=== PATIENT | female | born 1930 | race Caucasian/White ===

== ENCOUNTER 2018-01-26 01:53 | Inpatient (IN) ==
--- NOTE | 2018-01-26 04:49 | P.CONNS ---
History of Present Illness Service: Neurosurgery Consult date: 01/26/18 Requesting Physician: Lilian Moreno Reason for Consult: Traumatic brain injury Primary Care Provider: UNKNOWN History of Present Illness: 87-year-old female who reportedly tripping over a cat and was taken to [facility] emergency room. Is unclear whether there is loss of consciousness. CT scan of the head was obtained and reveals small right frontal subdural hemorrhage along with traumatic subarachnoid hemorrhage involving the sylvian fissures right more than left with generalized atrophy without any midline shift or mass-effect noted. She also found to have facial fractures quested thereafter. Patient's main complaint is a headache along with the right shoulder pain and low back pain. Denies any nausea vomiting or numbness or paresthesias in upper or lower extremities. Review of Systems Constitutional: Reports body ache(s), Reports headache(s), Denies anorexia, Denies chills, Denies daytime sleepiness, Denies excessive sweating, Denies fatigue, Denies fever(s), Denies increased appetite, Denies lack of energy, Denies malaise, Denies night sweats, Denies weakness, Denies weight gain, Denies weight loss, Denies other Eyes: Reports pain, Denies blind spots, Denies blurry vision, Denies bulging eyes, Denies change in vision, Denies double vision, Denies discharge, Denies dry eyes, Denies floaters, Denies irritation, Denies itchy eyes, Denies loss of vision, Denies requires corrective lenses, Denies sensitivity to light, Denies other Ears, Nose, Mouth, and Throat: Reports headache(s), Denies abnormal hearing, Denies bleeding gums, Denies bad breath, Denies change in voice, Denies dental pain, Denies difficulty swallowing, Denies dizziness, Denies dry mouth, Denies ear discharge, Denies ear pain, Denies facial pain, Denies hearing loss, Denies hoarseness, Denies lip swelling, Denies nosebleed, Denies mouth lesions, Denies mouth pain, Denies nasal congestion, Denies nasal discharge, Denies nasal obstruction, Denies nasal trauma, Denies neck lump, Denies neck pain, Denies nose pain, Denies pain with swallowing, Denies poor balance, Denies post nasal drip, Denies ringing in the ears, Denies sinus pain, Denies sinus pressure, Denies sore throat, Denies throat swelling, Denies tongue swelling, Denies other Cardiovascular: Denies chest pain, Denies chest pain at rest, Denies chest pain with activity, Denies excessive sweating, Denies fainting, Denies fast heart rate, Denies foot swelling, Denies generalized swelling, Denies irregular heart rhythm, Denies leg pain with activity, Denies leg sores, Denies leg swelling, Denies lightheadedness, Denies radiating jaw, neck or arm pain, Denies rapid, pounding, or irregular heartbeat, Denies shortness of breath, Denies shortness of breath with activity, Denies shortness of breath when lying down, Denies shortness of breath causing sudden awakening, Denies slow heart rate, Denies other Respiratory: Denies change in phlegm color, Denies chest congestion, Denies cough, Denies coughing up blood, Denies excessive phlegm production, Denies pain on inspiration, Denies pain with cough, Denies shortness of breath, Denies shortness of breath with activity, Denies snoring, Denies stridor, Denies wheezing, Denies other Gastrointestinal: Denies abdominal pain, Denies belching, Denies black, tarry stools, Denies bloating, Denies bright, red blood in stools, Denies change in bowel habits, Denies constant urge to pass stool, Denies change in stools, Denies coffee ground vomit, Denies constipation, Denies cramping, Denies difficulty swallowing, Denies excessive passing of gas, Denies feeling full early, Denies heartburn, Denies incontinent of stools, Denies loose stools, Denies nausea, Denies pain with swallowing, Denies vomiting, Denies vomiting blood, Denies other Genitourinary: Denies abnormal periods, Denies abnormal vaginal bleeding, Denies absent period, Denies bleeding between periods, Denies blood in urine, Denies difficulty starting urination, Denies difficulty urinating, Denies dribbling after urination, Denies frequent nighttime urination, Denies genital itching, Denies genital lesions, Denies heavy periods, Denies hot flashes, Denies light periods, Denies nipple discharge, Denies painful intercourse, Denies painful periods, Denies painful urination, Denies pelvic pain, Denies prolapse symptoms, Denies sexual problems, Denies side pain, Denies urinary incontinence, Denies urinary urgency, Denies vaginal discharge, Denies vaginal dryness, Denies vaginal odor, Denies vaginal itching, Denies other Musculoskeletal: Reports back pain, Reports body aches, Reports joint pain, Denies abnormal walking, Denies decreased muscle mass, Denies deformity, Denies joint swelling, Denies limited joint movement, Denies loss of height, Denies muscle cramps, Denies muscle weakness, Denies neck pain, Denies numbness, Denies radiating pain into limb, Denies stiffness, Denies tingling, Denies other Skin/Breast: Reports unusual bruising, Denies acne, Denies bleeding lesions, Denies boil, Denies breast swelling, Denies breast skin changes, Denies breast pain, Denies breast lump, Denies change in breast shape, Denies change in hair, Denies change in skin color, Denies changing lesions, Denies dry skin, Denies excessive hair growth, Denies hair loss, Denies itching, Denies lesions, Denies nail changes, Denies new lesions, Denies nipple discharge, Denies non-healing lesions, Denies redness, Denies sensitivity to light, Denies rash, Denies skin pain, Denies skin ulcer, Denies sores, Denies stretch gaitan, Denies wounds, Denies yellowing of the skin, Denies other Neurologic: Denies abnormal hearing, Denies abnormal movements, Denies abnormal speech, Denies abnormal walking, Denies behavioral changes, Denies burning sensations, Denies confusion, Denies dizziness, Denies fainting, Denies frequent falls, Denies headache(s), Denies lack of coordination, Denies localized weakness, Denies loss of vision, Denies memory loss, Denies numbness, Denies other visual disturbances, Denies radiating pain, Denies restless legs, Denies convulsions, Denies seizure-like activity, Denies sensory deficit, Denies tingling, Denies tingling/numbness/burning sensations, Denies tremor(s), Denies unsteadiness, Denies weakness, Denies other Psychiatric: Denies abnormal sleep pattern, Denies anxiety, Denies behavioral changes, Denies change in appetite, Denies change in sex drive, Denies confusion , Denies depression, Denies difficulty concentrating, Denies hearing things others do not hear, Denies hopelessness, Denies irritability, Denies lack of enjoyment, Denies memory loss, Denies mood swings, Denies panic attacks, Denies paranoia, Denies seeing things others do not see, Denies sensing things others do not sense, Denies tactile hallucinations, Denies thoughts of hurting/killing others, Denies thoughts of hurting/killing yourself, Denies other Endocrine: Denies cold intolerance, Denies excessive sweating, Denies flushing, Denies heat intolerance, Denies increased hunger, Denies increased thirst, Denies increased urination, Denies rapid, pounding, or irregular heartbeat, Denies other Hematologic/Lymphatic: Reports easy bruising, Denies easy bleeding, Denies enlarged lymph nodes, Denies other Allergic/Immunologic: Denies GI upset with certain foods, Denies hives, Denies itchy eyes, Denies lip swelling, Denies seasonal runny nose, Denies throat swelling, Denies tongue swelling, Denies wheezing, Denies other PMFSH - Medical History Medical History: Medical History (Last Updated 01/27/18 @ 10:01 by Stevie Yost MD) CHF (congestive heart failure) COPD (chronic obstructive pulmonary disease) Coronary artery disease Hypertension - Tobacco History Smoking Status: Former smoker - Alcohol History How Often Do You Have a Drink Containing Alcohol: Never Medications and Allergies Allergies Allergy/AdvReac Type Severity Reaction Status Date / Time Penicillins Allergy Mild Shakiness Verified 01/26/18 05:13 acetaminophen [From Percocet] Allergy Itching Unverified 01/26/18 05:14 metformin Allergy Nausea/Vomi Verified 01/26/18 05:15 ting oxycodone [From Percocet] Allergy Itching Unverified 01/26/18 05:14 Home Medications Medication Instructions Recorded Confirmed Type aspirin [Aspirin Low Dose] 81 mg PO DAILY 01/26/18 01/26/18 History atorvastatin [Lipitor] 10 mg PO HS 01/26/18 01/26/18 History betamethasone dipropionate TOPICAL DAILY 01/26/18 History gabapentin 200 mg PO HS 01/26/18 01/26/18 History ipratropium bromide 2 spray INTRANASAL BID 01/26/18 01/26/18 History isosorbide mononitrate 30 mg PO DAILY 01/26/18 01/26/18 History latanoprost 1 drp OPHTHALMIC (EYE) QPM 01/26/18 01/26/18 History loratadine 10 mg PO DAILY 01/26/18 01/26/18 History lorazepam 1 mg PO HS 01/26/18 01/26/18 History melatonin 3 mg PO HS 01/26/18 01/26/18 History metoprolol succinate 50 mg PO DAILY 01/26/18 01/26/18 History montelukast 10 mg PO QPM 01/26/18 01/26/18 History multivitamin [Multiple Vitamins] 1 tab PO EVERY OTHER DAY 01/26/18 01/26/18 History omeprazole 20 mg PO DAILY 01/26/18 01/26/18 History sertraline 200 mg PO DAILY 01/26/18 01/26/18 History Exam - Constitutional no acute distress - Routine HEENT Exam Head: Present: laceration Eye: Present: EOMI, PERRL, periorbital ecchymosis, periorbital swelling, periorbital tenderness ENT: Present: mucous membranes moist, oropharynx clear, nares patent, external ear normal - Detailed Head Exam Head image: 1 - Right periorbital ecchymosis and swelling and laceration which has been Steri-Stripped - Routine Neck Exam Present: supple, full ROM, trachea midline - Routine Respiratory Exam Present: CTA bilaterally - Routine Cardiovascular Exam Present: RRR, S1, S2 - Routine Abdominal Exam Present: soft, normoactive bowel sounds - Routine Extremities Exam Present: edema, tenderness, joint swelling Comments: Right shoulder ecchymosis and tenderness to movement; right knee abrasion with bilateral knee surgery incision well-healed - Routine Skin Exam Present: wounds, ecchymosis - Routine Neurological Exam Present: alert, CN II-XII intact, moving all extremities, normal speech - Routine Psychiatric Exam Present: normal affect, cooperative Results - Laboratory Findings CBC and BMP: 01/27/18 03:56 07/22/18 03:56 - Diagnostic Findings Additional findings: CT scan of the head from [facility] reviewed and shows right subfrontal 5 mm small subdural hemorrhage along with the traumatic subarachnoid involving the right lateral sylvian fissure and insula along with the frontoparietal convexity as well as a left lateral sylvian fissure. No significant mass-effect or midline shift is noted with generalized cerebral atrophy. Assessment and Plan - Assessment (1) Traumatic brain injury Code(s): S06.9X9A - Unspecified intracranial injury with loss of consciousness of unspecified duration, initial encounter Status: Acute (2) Traumatic subarachnoid hemorrhage Code(s): S06.6X9A - Traumatic subarachnoid hemorrhage with loss of consciousness of unspecified duration, initial encounter Status: Acute (3) Subdural hemorrhage Code(s): I62.00 - Nontraumatic subdural hemorrhage, unspecified Status: Acute - Plan 87-year-old lady was transferred from [facility] fall at home with a traumatic brain injury involving the small right frontal subdural hemorrhage along with traumatic subarachnoid hemorrhage right more than left with generalized atrophy and no mass-effect. She will be monitored closely in the surgical intensive care unit. Had a bed elevated 30 with sequential compression devices for DVT prophylaxis. Follow-up CT scan of the head later this morning to rule out any progression of these areas of hemorrhages. Patient does have a DNR status and will need to address with the family/health proxy as to how aggressive of the management we need to consider should her traumatic brain injury/hemorrhages progress and her condition deteriorates. Guarded prognosis at this point. (1) Traumatic brain injury Qualifiers: Encounter type: initial encounter (2) Traumatic subarachnoid hemorrhage Qualifiers: Encounter type: initial encounter
[2018-01-26] MEDS ORDERED: levETIRAcetam 500mg/100mL Inj 100 ML IV.SIG SCH (06:00)
[2018-01-26] MEDS: Sod Chloride 0.9% Inj 1,000 ML IV.SIG SCH ×2 (06:20→17:51)
[2018-01-26 09:15] LABS: Hematocrit 34.9 % (35.0-46.0); Hemoglobin 11.4 gm/dL (11.6-15.3); Mean Corpuscular HGB Conc 32.6 % (32.0-36.0); Mean Corpuscular Hemoglobin 29.3 pg (27.0-34.0); Mean Corpuscular Volume 89.7 fL (80.0-100.0); Mean Platelet Volume 9.3 fL (7.0-11.0); Platelet Count 89 th/mm3 (150-450); Red Blood Count 3.89 mil/mm3 (4.00-5.30); Red Cell Distribution Width 15.3 % (11.6-17.2); White Blood Count 5.6 th/mm3 (4.0-11.0)
[2018-01-26] MEDS ORDERED: Dextrose 50% in Water 50 ML Vial IV.PUSH PRN (09:32)
[2018-01-26 09:34] LABS: Anion Gap 9 meq/L (5-15); Blood Urea Nitrogen 19 mg/dL (7-18); Calcium 9.1 mg/dL (8.5-10.1); Carbon Dioxide 24.9 meq/L (21.0-32.0); Chloride 108 meq/L (98-107); Glomerular Filtration Rate Greater Than 89 mL/min (>89); Glucose,Random 99 mg/dL (74-106); Potassium 4.1 meq/L (3.5-5.1); Sodium 142 meq/L (136-145)
[2018-01-26] MEDS: Docusate Sodium 100 MG Capsule PO SCH ×2 (10:04→20:47)
[2018-01-26] MEDS: Mupirocin 2% Nasal Oint Topical Syringe EACH NARE SCH ×2 (11:22→20:47)
[2018-01-26] MEDS: Insulin NovoLIN Regular Correctional Sugar Inj SQ SCH ×3 (11:52→21:18)
--- NOTE | 2018-01-26 11:56 | P.PNCC ---
Subjective 24 Hour Review/Hospital Course: 01/26/2018 Patient came in the middle of the night from [facility] transfer. Patient fell and sustained frontal bilateral hemorrhage and subarachnoid hemorrhage left more than right without mass-effect or midline shift. Right tripod fracture with some bruising over the right forehead and facial area Objective Vital Signs / I&O: Vital Signs 01/26/18 04:00 01/26/18 06:00 Temperature 98.3 F Pulse Rate 59 L 58 L Respiratory Rate 22 24 Blood Pressure 160/74 H 147/80 H Pulse Oximetry 93 L 98 Intake & Output 01/25/18 01/26/18 01/26/18 18:59 06:59 18:59 Intake Total 100 / 100 105 / 105 Output Total 350 / 350 Balance -250 / -250 105 / 105 Weight 70.6 kg Intake: IV 105 / 105 Keppra Inj 500 MG In NS Inj 100 105 / 105 ML @ 420 mls/hr IV.SIG Q12H HORACIO Rx#:[id number] Oral 100 / 100 Output: Urine Amount (Catheter) 350 / 350 Indwelling Urethral Catheter 350 / 350 Other: Weight On Admission 70.6 kg Result Diagrams: 01/26/18 08:10 01/26/18 08:10 - Exam WELT SOLE LAYER: Patient is awake however has not slept all night so when awakened she is somnolent but follows commands and answers simple questions appropriately Patient has no gross neurologic deficit Hemodynamic/Cardiac: Hemodynamically stable Pulmonary/Respiratory: Bilateral breath sounds decreased over the lung green consistent with quite advanced COPD and pulmonary cachexia Abdomen/GI Nutrition: Abdomen soft and patulous Renal/I&O: Renal function appears to be preserved Assessment and Plan Attestation: Critical care time 34 minutes
--- NOTE | 2018-01-26 12:18 | MH ---
cc: Lilian Moreno MD DATE OF ADMISSION: 01/26/2018 HISTORY OF PRESENT ILLNESS: This 87-year-old lady sustained a fall and was taken to the [facility]. She was diagnosed with a small right frontal subdural hemorrhage and subarachnoid hemorrhage on both sides. The patient was placed in the emergency room and I was called to accept the patient in transfer, which is readily accepted. The patient comes here in the middle of the night, awake, alert, slightly somnolent. The patient is DNR. PHYSICAL EXAMINATION: GENERAL: Reveals this 87-year-old female, appearing her actual age. HEENT: Normocephalic. Trauma to the head consistent with some bruises over the forehead, the face and the scalp area. Pupils equally reactive. Extraocular muscles intact. Oral cavity is partially edentulous. No giron sign. No raccoon eyes. NECK: Bilateral carotid pulses. No bruits. No signs of trauma to the neck. CHEST: Bilateral breath sounds, quite decreased over both lungs green consistent with senile emphysema and COPD. The patient has a significant degree of cachexia; part of it is pulmonary and part of it is probably related to the age. CARDIOVASCULAR: Regular rhythm, normotensive. ABDOMEN: Soft. Patulous. Hypoactive bowel sounds. No rebound, no guarding, no masses. No signs of trauma to the abdomen. EXTREMITIES: The patient has bilateral femoral, popliteal, dorsalis pedis and posterior tibial pulses, bilateral brachial, ulnar and radial pulses. She has bruising over both upper extremities, mainly below the level of the elbow and part of it may be the patient is on aspirin and part of it from the injuries. She apparently bruises very easily. PAST MEDICAL HISTORY: Unknown. The patient definitely has hypertension, previous coronary artery disease, CHF, severe COPD. PAST SURGICAL HISTORY: Not known to me. IMPRESSION: An 87-year-old lady who is otherwise DNR, but now comes with bruising over the right face, periorbital area. Final diagnosis includes the above-noted intracranial hemorrhage plus tripod fracture on the right, which is nonoperative. CRITICAL CARE TIME: 30 minutes. MD VIKI Talavera/KRISTEN , 11:53 AM , 12:17 PM
--- NOTE | 2018-01-26 12:20 | XR ---
EXAM DATE: 01/26/2018 12:17 PM EDT AGE/SEX: 87 years / Female INDICATIONS: Trauma. Fall. CLINICAL DATA: This is the patient's initial encounter. Patient reports that signs and symptoms have been present for 2 days and indicates a pain score of 7/10. MEDICAL/SURGICAL HISTORY: None. None. COMPARISON: No prior exams available for comparison. FINDINGS: Views of the right shoulder obtained. Prominent degenerative changes. High riding right shoulder. No fracture or dislocation. Soft tissues are unremarkable. No radiopaque foreign bodies seen. CONCLUSION: Degenerative changes with high riding right shoulder likely chronic rotator cuff tear. Electronically signed by: Frankie Carmona MD 01/26/2018 12:18 PM EDT
[2018-01-26] MEDS: Sertraline 100 MG Tablet PO SCH (15:46)
[2018-01-26] MEDS: Montelukast 10 MG Tablet PO SCH (17:51)
[2018-01-26] MEDS ORDERED: Latanoprost 0.005% Opth Drops 2.5 ML Bottle EACH EYE SCH (18:00)
[2018-01-26] MEDS: Melatonin 5 MG Tablet PO SCH (20:47)
[2018-01-26] MEDS: Gabapentin 100 MG Capsule PO SCH (20:47)
[2018-01-26] MEDS: Latanoprost 0.005% Opth Drops 2.5 ML Bottle EACH EYE SCH (20:48)
[2018-01-26] MEDS ORDERED: MELATONIN 3 MG PO SCH (21:00)
[2018-01-27] MEDS ORDERED: Chlorhexidine Gluconate 2% 1 Pack (2 Cloths) TOPICAL PRN (04:00)
[2018-01-27 04:10] LABS: Baso % (Auto) 0.5 % (0.0-2.0); Eos % (Auto) 0.8 % (0.0-4.0); Hemoglobin 11.2 gm/dL (11.6-15.3); Lymph # (Auto) 0.9 th/mm3 (1.0-4.8); Mean Corpuscular HGB Conc 32.9 % (32.0-36.0); Mean Corpuscular Hemoglobin 29.3 pg (27.0-34.0); Mean Corpuscular Volume 88.9 fL (80.0-100.0); Mean Platelet Volume 8.9 fL (7.0-11.0); Mono # (Auto) 0.4 th/mm3 (0.0-0.9); Mono % (Auto) 5.8 % (0.0-8.0); Neut # (Auto) 4.8 th/mm3 (1.8-7.7); Neut % (Auto) 77.9 % (16.0-70.0); Platelet Count 82 th/mm3 (150-450); Red Blood Count 3.82 mil/mm3 (4.00-5.30); Red Cell Distribution Width 15.4 % (11.6-17.2); White Blood Count 6.1 th/mm3 (4.0-11.0)
[2018-01-27 04:33] LABS: Calcium 8.3 mg/dL (8.5-10.1); Carbon Dioxide 27.2 meq/L (21.0-32.0); Potassium 4.1 meq/L (3.5-5.1)
--- NOTE | 2018-01-27 04:40 | CT ---
EXAM DATE: 01/27/2018 4:22 AM EDT AGE/SEX: 87 years / Female INDICATIONS: Follow up hemorrhage. CLINICAL DATA: This is the patient's initial encounter. Patient reports that signs and symptoms have been present for 1 day and indicates a pain score of Nonresponsive. MEDICAL/SURGICAL HISTORY: Non-responsive. Non-responsive. RADIATION DOSE: 56.35 CTDI (mGy) COMPARISON: No prior exams available for comparison. [facility] 2018-01-26 TECHNIQUE: CT of the head without contrast. Using automated exposure control and adjustment of the mA and/or kV according to patient size, radiation dose was kept as low as reasonably achievable to ob tain optimal diagnostic quality images. DICOM format image data is available electronically for revi ew and comparison. FINDINGS: Cerebrum: Moderate amount of subarachnoid hemorrhage in the sylvian fissure and sulci of the right t emporal lobe and frontal lobe. Small amount of subarachnoid hemorrhage also seen with a similar distr ibution on the left. 6 mm thick right frontoparietal subdural hematoma. No evidence of mass effect or midline shift. No evidence of acute infarct. Periventricular white matter hypodensity indicates waterworks chief engineer johnny small vessel ischemic change. No intracranial mass lesion identified. Ventricles within normal li mits. Posterior Fossa: The cerebellum and brainstem are intact. The 4th ventricle is midline. The cerebe llopontine angle is unremarkable. Extracranial: Moderate-sized air-fluid level in the right maxillary sinus. Mild ethmoid sinus mucosa l thickening. Skull: The calvaria is intact. No evidence of skull fracture. CONCLUSION: 1. Bilateral frontotemporal lobe subarachnoid hemorrhage right greater than left. Small right fronto parietal subdural hematoma. No evidence of midline shift. 2. Moderate-sized right maxillary sinus air-fluid level suggesting acute sinusitis. Electronically signed by: Ivan Somers MD 01/27/2018 4:39 AM EDT
[2018-01-27] MEDS: Chlorhexidine Gluconate 2% 1 Pack (2 Cloths) TOPICAL SCH (04:49)
[2018-01-27] MEDS: Sod Chloride 0.9% Inj 1,000 ML IV.SIG SCH ×2 (05:54→20:39)
[2018-01-27 06:04] LABS: Ovalocytes 1+; Platelet Morphology Normal (Normal)
[2018-01-27] MEDS: Insulin NovoLIN Regular Correctional Sugar Inj SQ SCH ×4 (07:56→20:40)
[2018-01-27] MEDS: Mupirocin 2% Nasal Oint Topical Syringe EACH NARE SCH ×2 (08:34→20:38)
[2018-01-27] MEDS: Loratadine 10 MG Tablet PO SCH (08:35)
[2018-01-27] MEDS: Pantoprazole Sodium 20 MG DR Tablet PO SCH (08:35)
[2018-01-27] MEDS: Docusate Sodium 100 MG Capsule PO SCH ×2 (08:35→20:39)
[2018-01-27] MEDS: Sertraline 100 MG Tablet PO SCH (08:35)
[2018-01-27] MEDS: Polyethylene Glycol 3350 17 GM Packet PO SCH (08:36)
[2018-01-27] MEDS ORDERED: Acetaminophen 325 MG Tablet PO PRN (09:59)
--- NOTE | 2018-01-27 10:57 | P.PNCC ---
Subjective 24 Hour Review/Hospital Course: 01/26/2018 Patient came in the middle of the night from [facility] transfer. Patient fell and sustained frontal bilateral hemorrhage and subarachnoid hemorrhage left more than right without mass-effect or midline shift. Right tripod fracture with some bruising over the right forehead and facial area 01/27/2018 Patient is awake but somnolent easily arousable Follows commands moves all 4 extremities and answers simple questions appropriately Repeat CT scan consistent with a resolving intracranial hemorrhages Hemodynamically patient stable Bilateral breath sounds good inspiratory effort Abdomen soft no rebound no guarding diet tolerated Objective Vital Signs / I&O: Vital Signs 01/26/18 12:00 01/26/18 16:00 01/26/18 20:00 Temperature 98.9 F 99.5 F 98.6 F Pulse Rate 62 70 68 Respiratory Rate 20 23 22 Blood Pressure 132/59 L 137/63 145/63 H Pulse Oximetry 92 L 97 98 01/26/18 20:42 01/27/18 00:00 01/27/18 04:00 Temperature 98.1 F 99.1 F Pulse Rate 74 56 L Respiratory Rate 16 20 Blood Pressure 113/56 L 159/72 H Pulse Oximetry 98 01/27/18 08:37 Temperature Pulse Rate Respiratory Rate Blood Pressure Pulse Oximetry 97 Intake & Output 01/26/18 01/27/18 01/27/18 18:59 06:59 18:59 Intake Total 1587 / 1587 1205 / 1205 Output Total 775 / 775 1150 / 1150 Balance 812 / 812 55 / 55 Weight 69 kg Intake: IV 1105 / 1105 1105 / 1105 NS Inj 1,000 ML @ 80 mls/hr IV. 1000 / 1000 1000 / 1000 SIG .[id number] HORACIO Rx#:[id number] Keppra Inj 500 MG In NS Inj 100 105 / 105 105 / 105 ML @ 420 mls/hr IV.SIG Q12H HORACIO Rx#:[id number] Oral 482 / 482 100 / 100 Output: Urine Amount (Catheter) 775 / 775 1150 / 1150 Indwelling Urethral Catheter 775 / 775 1150 / 1150 Other: Date of Last Bowel Movement 01/26/18 01/26/18 # Bowel Movements 1 Result Diagrams: 01/27/18 03:56 01/27/18 03:56 Imaging: Impressions Shoulder X-Ray 01/26/18 00:00 CONCLUSION: Degenerative changes with high riding right shoulder likely chronic rotator cuff tear. Head CT 01/27/18 00:00 CONCLUSION: 1. Bilateral frontotemporal lobe subarachnoid hemorrhage right greater than left. Small right frontoparietal subdural hematoma. No evidence of midline shift. 2. Moderate-sized right maxillary sinus air-fluid level suggesting acute sinusitis. Disinhibition Score: 14.00 Aggression Score: 14.00 Lability Score: 14.00 Agitated Behavior Total Score: 14 - Exam ACTIVITY DIRECTOR: Patient is awake but somnolent easily arousable Follows commands moves all 4 extremities and answers simple questions appropriately Repeat CT scan consistent with a resolving intracranial hemorrhages Hemodynamic/Cardiac: Hemodynamically patient stable Pulmonary/Respiratory: Bilateral breath sounds good inspiratory effort Abdomen soft no rebound no guarding diet tolerated Renal/I&O: Renal function preserved Assessment and Plan Attestation: Patient with intracranial bleed sustained due to the fall from the standing position. Patient is doing okay at this time and will need halfway placement Discharge to floor or SNF Critical care time 32 minutes
--- NOTE | 2018-01-27 12:28 | P.PNNS ---
Subjective Interval history: Pt awakens to voice but some lethargy. Dysarthric speech but states name. Follows commands. Moves all 4 extremities. <Frankie Fox - Last Filed: 01/27/18 12:19> Physical Exam Vital signs: Vital Signs 01/26/18 16:00 01/26/18 20:00 01/26/18 20:42 Temperature 99.5 F 98.6 F Pulse Rate 70 68 Respiratory Rate 23 22 Blood Pressure 137/63 145/63 H Pulse Oximetry 97 98 98 01/27/18 00:00 01/27/18 04:00 01/27/18 08:37 Temperature 98.1 F 99.1 F Pulse Rate 74 56 L Respiratory Rate 16 20 Blood Pressure 113/56 L 159/72 H Pulse Oximetry 97 Intake & Output 01/26/18 01/27/18 01/27/18 18:59 06:59 18:59 Intake Total 1587 / 1587 1205 / 1205 Output Total 775 / 775 1150 / 1150 Balance 812 / 812 55 / 55 Weight 69 kg Intake: IV 1105 / 1105 1105 / 1105 NS Inj 1,000 ML @ 80 mls/hr IV. 1000 / 1000 1000 / 1000 SIG .[id number] [facility] Rx#:[id number] Keppra Inj 500 MG In NS Inj 100 105 / 105 105 / 105 ML @ 420 mls/hr IV.SIG Q12H [facility] Rx#:[id number] Oral 482 / 482 100 / 100 Output: Urine Amount (Catheter) 775 / 775 1150 / 1150 Indwelling Urethral Catheter 775 / 775 1150 / 1150 Other: Date of Last Bowel Movement 01/26/18 01/26/18 # Bowel Movements 1 - Constitutional no acute distress, average body habitus, cooperative, somnolent - Routine HEENT Exam Head: Absent: atraumatic (Right eyes ecchymosis with steristrips in place.) Eye: Present: PERRL (Pupils 3mm bilaterally. Reactive bilaterally.), periorbital ecchymosis (right eye.), periorbital swelling (right eye.). Absent : conjunctival icterus - Routine Respiratory Exam Present: CTA bilaterally. Absent: respiratory distress, rhonchi, wheezes - Routine Cardiovascular Exam Present: RRR, S1, S2. Absent: murmur - Routine Abdominal Exam Present: soft, normoactive bowel sounds. Absent: tenderness, distended - Routine Skin Exam Present: ecchymosis (right eye and right forearm both with steristrips intact.) . Absent: cyanosis, erythema - Routine Neurological Exam Present: altered mental status (arousable but not alert.), moving all extremities. Absent: alert, motor deficit, normal speech (dysarthric speech but states name and follows commands.) - Detailed Neurological Exam: Coma Scale Eye Opening: To sound Verbal Response: Words Motor Response: Obey commands [place] Coma Scale Total: 12 - Routine Psychiatric Exam Present: unable to assess - Urinary Catheter Management Indwelling Urethral Catheter Cath placed during this visit: yes Reason for continuing: Hourly intake/output Insertion date: 01/26/18 <Frankie Fox - Last Filed: 01/27/18 12:19> Vital signs: Vital Signs 01/26/18 16:00 01/26/18 20:00 01/26/18 20:42 Temperature 99.5 F 98.6 F Pulse Rate 70 68 Respiratory Rate 23 22 Blood Pressure 137/63 145/63 H Pulse Oximetry 97 98 98 01/27/18 00:00 01/27/18 04:00 01/27/18 08:00 Temperature 98.1 F 99.1 F 98.8 F Pulse Rate 74 56 L 66 Respiratory Rate 16 20 18 Blood Pressure 113/56 L 159/72 H 118/55 L Pulse Oximetry 98 01/27/18 08:37 01/27/18 12:00 Temperature 99.0 F Pulse Rate 63 Respiratory Rate 21 Blood Pressure 173/78 H Pulse Oximetry 97 96 Intake & Output 01/26/18 01/27/18 01/27/18 18:59 06:59 18:59 Intake Total 1587 / 1587 1205 / 1205 Output Total 775 / 775 1150 / 1150 Balance 812 / 812 55 / 55 Weight 69 kg Intake: IV 1105 / 1105 1105 / 1105 NS Inj 1,000 ML @ 80 mls/hr IV. 1000 / 1000 1000 / 1000 SIG .[id number] [facility] Rx#:[id number] Keppra Inj 500 MG In NS Inj 100 105 / 105 105 / 105 ML @ 420 mls/hr IV.SIG Q12H [facility] Rx#:[id number] Oral 482 / 482 100 / 100 Output: Urine Amount (Catheter) 775 / 775 1150 / 1150 Indwelling Urethral Catheter 775 / 775 1150 / 1150 Other: Date of Last Bowel Movement 01/26/18 01/26/18 01/27/18 # Bowel Movements 1 - Urinary Catheter Management Indwelling Urethral Catheter Cath placed during this visit: no <Stevie Yost - Last Filed: 01/27/18 13:46> Assessment and Plan - Assessment (1) Traumatic brain injury Code(s): S06.9X9A - Unspecified intracranial injury with loss of consciousness of unspecified duration, initial encounter Status: Acute Qualifiers: Encounter type: initial encounter (2) Traumatic subarachnoid hemorrhage Code(s): S06.6X9A - Traumatic subarachnoid hemorrhage with loss of consciousness of unspecified duration, initial encounter Status: Acute Qualifiers: Encounter type: initial encounter (3) Subdural hemorrhage Code(s): I62.00 - Nontraumatic subdural hemorrhage, unspecified Status: Acute - Plan A: 87-year-old lady was transferred from [facility] fall at home with a traumatic brain injury involving the small right frontal subdural hemorrhage along with traumatic subarachnoid hemorrhage right more than left with generalized atrophy and no mass-effect. P: Continue to monitor Neuro exam. Head a bed elevated 30 Continue with sequential compression devices for DVT prophylaxis. Continue with GI prophylaxis. Keppra for seizure prophylaxis. <Frankie Fox - Last Filed: 01/27/18 12:19> - Assessment (1) Traumatic brain injury Code(s): S06.9X9A - Unspecified intracranial injury with loss of consciousness of unspecified duration, initial encounter Status: Acute Qualifiers: Encounter type: initial encounter (2) Traumatic subarachnoid hemorrhage Code(s): S06.6X9A - Traumatic subarachnoid hemorrhage with loss of consciousness of unspecified duration, initial encounter Status: Acute Qualifiers: Encounter type: initial encounter (3) Subdural hemorrhage Code(s): I62.00 - Nontraumatic subdural hemorrhage, unspecified Status: Acute - Attending Attestation The exam, history, and the medical decision-making described in the above note were completed with the assistance of the mid-level provider. I reviewed and agree with the findings presented. I attest that I had a [id number] encounter with the patient on the same day, and personally performed and documented my assessment and findings in the medical record. Stable follow-up CT scan of the head and neurologic examination. Continue with supportive care. <Stevie Yost - Last Filed: 01/27/18 13:46>
[2018-01-27] MEDS: Montelukast 10 MG Tablet PO SCH (20:38)
[2018-01-27] MEDS: Melatonin 5 MG Tablet PO SCH (20:38)
[2018-01-27] MEDS: Gabapentin 100 MG Capsule PO SCH (20:39)
[2018-01-27] MEDS: Latanoprost 0.005% Opth Drops 2.5 ML Bottle EACH EYE SCH (20:40)
[2018-01-28] MEDS: Chlorhexidine Gluconate 2% 1 Pack (2 Cloths) TOPICAL SCH (04:06)
[2018-01-28] MEDS: Insulin NovoLIN Regular Correctional Sugar Inj SQ SCH ×4 (08:42→20:12)
[2018-01-28] MEDS: Docusate Sodium 100 MG Capsule PO SCH ×2 (08:44→20:10)
[2018-01-28] MEDS: Polyethylene Glycol 3350 17 GM Packet PO SCH (08:44)
[2018-01-28] MEDS: Pantoprazole Sodium 20 MG DR Tablet PO SCH (09:12)
[2018-01-28] MEDS: Sod Chloride 0.9% Inj 1,000 ML IV.SIG SCH ×2 (09:12→20:04)
[2018-01-28] MEDS: Loratadine 10 MG Tablet PO SCH (09:12)
[2018-01-28] MEDS: Mupirocin 2% Nasal Oint Topical Syringe EACH NARE SCH ×2 (09:12→20:13)
[2018-01-28] MEDS: Sertraline 100 MG Tablet PO SCH (09:12)
[2018-01-28 09:26] LABS: Calcium 8.9 mg/dL (8.5-10.1); Carbon Dioxide 25.8 meq/L (21.0-32.0); Magnesium 1.6 mg/dL (1.5-2.5); Potassium 3.9 meq/L (3.5-5.1)
--- NOTE | 2018-01-28 09:44 | P.PNNS ---
Subjective Interval history: Pt awakens but for brief periods of time. Denies headache, nausea, or vomiting. She follows commands. <Frankie Fox - Last Filed: 01/28/18 09:37> Physical Exam Vital signs: Vital Signs 01/27/18 12:00 01/27/18 16:00 01/27/18 19:32 Temperature 99.0 F 98.2 F Pulse Rate 63 73 Respiratory Rate 21 21 Blood Pressure 173/78 H 144/60 H Pulse Oximetry 96 95 97 01/27/18 20:00 01/28/18 00:00 01/28/18 04:00 Temperature 98.1 F 97.8 F 97.8 F Pulse Rate 74 76 64 Respiratory Rate 28 H 22 28 H Blood Pressure 124/65 153/75 H 144/75 H Pulse Oximetry 91 L 95 01/28/18 09:05 Temperature Pulse Rate Respiratory Rate Blood Pressure Pulse Oximetry 100 Intake & Output 01/27/18 01/28/18 01/28/18 18:59 06:59 18:59 Intake Total 1205 / 1205 1182 / 1182 1000 / 1000 Output Total 1150 / 1150 1500 / 1500 Balance 55 / 55 -318 / -318 1000 / 1000 Weight 69 kg Intake: IV 1105 / 1105 105 / 105 1000 / 1000 NS Inj 1,000 ML @ 80 mls/hr IV. 1000 / 1000 1000 / 1000 SIG .[id number] [facility] Rx#:[id number] Keppra Inj 500 MG In NS Inj 100 105 / 105 105 / 105 ML @ 420 mls/hr IV.SIG Q12H [facility] Rx#:[id number] Oral 100 / 100 25 / 25 Other 1052 / 1052 Output: Urine Amount (Catheter) 1150 / 1150 1500 / 1500 Indwelling Urethral Catheter 1150 / 1150 1500 / 1500 Other: Other Intake Source Saline Solution # Voids 2 Date of Last Bowel Movement 01/27/18 01/27/18 # Bowel Movements 1 - Constitutional mild distress, average body habitus, somnolent - Routine HEENT Exam Head: Absent: atraumatic (Right facial ecchymosis.) Eye: Present: PERRL, periorbital ecchymosis (right eye.), periorbital swelling ( right eye.). Absent: conjunctival icterus - Routine Respiratory Exam Present: CTA bilaterally (Pt coughs a loud productive cough but swallows it.). Absent: respiratory distress - Routine Cardiovascular Exam Present: RRR, S1, S2. Absent: murmur - Routine Abdominal Exam Present: soft, normoactive bowel sounds. Absent: tenderness, distended - Routine Skin Exam Present: ecchymosis (forearms right more than left.) - Routine Neurological Exam Present: altered mental status (Pt arousable for brief periods of time then goes back to sleep.), moving all extremities. Absent: motor deficit (Moves all 4 extremities. She is in restraints in UEs.) - Detailed Neurological Exam: Coma Scale Eye Opening: To sound Verbal Response: Confused Motor Response: Obey commands (intermittently.) [place] Coma Scale Total: 13 - Routine Psychiatric Exam Present: unable to assess (Pt lethargic but arousable. Confused at times.) - Urinary Catheter Management Indwelling Urethral Catheter Cath placed during this visit: yes Reason for continuing: Hourly intake/output Insertion date: 01/26/18 <Frankie Fox - Last Filed: 01/28/18 09:37> Vital signs: Vital Signs 01/27/18 12:00 01/27/18 16:00 01/27/18 19:32 Temperature 99.0 F 98.2 F Pulse Rate 63 73 Respiratory Rate 21 21 Blood Pressure 173/78 H 144/60 H Pulse Oximetry 96 95 97 01/27/18 20:00 01/28/18 00:00 01/28/18 04:00 Temperature 98.1 F 97.8 F 97.8 F Pulse Rate 74 76 64 Respiratory Rate 28 H 22 28 H Blood Pressure 124/65 153/75 H 144/75 H Pulse Oximetry 91 L 95 01/28/18 08:00 01/28/18 09:05 Temperature 98.8 F Pulse Rate 67 Respiratory Rate 20 Blood Pressure 164/71 H Pulse Oximetry 100 100 Intake & Output 01/27/18 01/28/18 01/28/18 18:59 06:59 18:59 Intake Total 1205 / 1205 1182 / 1182 1000 / 1000 Output Total 1150 / 1150 1500 / 1500 Balance 55 / 55 -318 / -318 1000 / 1000 Weight 69 kg Intake: IV 1105 / 1105 105 / 105 1000 / 1000 NS Inj 1,000 ML @ 80 mls/hr IV. 1000 / 1000 1000 / 1000 SIG .[id number] [facility] Rx#:[id number] Keppra Inj 500 MG In NS Inj 100 105 / 105 105 / 105 ML @ 420 mls/hr IV.SIG Q12H [facility] Rx#:[id number] Oral 100 / 100 25 / 25 Other 1052 / 1052 Output: Urine Amount (Catheter) 1150 / 1150 1500 / 1500 Indwelling Urethral Catheter 1150 / 1150 1500 / 1500 Other: Other Intake Source Saline Solution # Voids 2 Date of Last Bowel Movement 01/27/18 01/27/18 01/27/18 # Bowel Movements 1 - Urinary Catheter Management Indwelling Urethral Catheter Cath placed during this visit: no <Stevie Yost - Last Filed: 01/28/18 11:05> Assessment and Plan - Assessment (1) Traumatic brain injury Code(s): S06.9X9A - Unspecified intracranial injury with loss of consciousness of unspecified duration, initial encounter Status: Acute Qualifiers: Encounter type: initial encounter (2) Traumatic subarachnoid hemorrhage Code(s): S06.6X9A - Traumatic subarachnoid hemorrhage with loss of consciousness of unspecified duration, initial encounter Status: Acute Qualifiers: Encounter type: initial encounter (3) Subdural hemorrhage Code(s): I62.00 - Nontraumatic subdural hemorrhage, unspecified Status: Acute - Plan A: 87-year-old lady was transferred from [facility] fall at home with a traumatic brain injury involving the small right frontal subdural hemorrhage along with traumatic subarachnoid hemorrhage right more than left with generalized atrophy and no mass-effect. P: Continue to monitor Neuro exam. Head a bed elevated 30 Continue with sequential compression devices for DVT prophylaxis. Continue with GI prophylaxis. Keppra for seizure prophylaxis. <Frankie Fox - Last Filed: 01/28/18 09:37> - Assessment (1) Traumatic brain injury Code(s): S06.9X9A - Unspecified intracranial injury with loss of consciousness of unspecified duration, initial encounter Status: Acute Qualifiers: Encounter type: initial encounter (2) Traumatic subarachnoid hemorrhage Code(s): S06.6X9A - Traumatic subarachnoid hemorrhage with loss of consciousness of unspecified duration, initial encounter Status: Acute Qualifiers: Encounter type: initial encounter (3) Subdural hemorrhage Code(s): I62.00 - Nontraumatic subdural hemorrhage, unspecified Status: Acute - Attending Attestation The exam, history, and the medical decision-making described in the above note were completed with the assistance of the mid-level provider. I reviewed and agree with the findings presented. I attest that I had a [id number] encounter with the patient on the same day, and personally performed and documented my assessment and findings in the medical record. <Stevie Yost - Last Filed: 01/28/18 11:05>
--- NOTE | 2018-01-28 10:39 | P.PNCC ---
Subjective 24 Hour Review/Hospital Course: 01/26/2018 Patient came in the middle of the night from [facility] transfer. Patient fell and sustained frontal bilateral hemorrhage and subarachnoid hemorrhage left more than right without mass-effect or midline shift. Right tripod fracture with some bruising over the right forehead and facial area 01/27/2018 Patient is awake but somnolent easily abusable Follows commands moves all 4 extremities and answers simple questions appropriately Repeat CT scan consistent with a resolving intracranial hemorrhages Hemodynamically patient stable Bilateral breath sounds good inspiratory effort Abdomen soft no rebound no guarding diet tolerated 01/28/2018 Patient has been out of bed with assistance and ambulated throughout the room however her affect remains flat and she refuses to open her eyes Eating very little and I believe patient will need temporary feeding tube considering the extent of her brain injury and length of recovery this will require with her advanced age Patient will need to be transferred to either rehab or SNF Can transfer to floor today with aggressive physical therapy Objective Vital Signs / I&O: Vital Signs 01/27/18 12:00 01/27/18 16:00 01/27/18 19:32 Temperature 99.0 F 98.2 F Pulse Rate 63 73 Respiratory Rate 21 21 Blood Pressure 173/78 H 144/60 H Pulse Oximetry 96 95 97 01/27/18 20:00 01/28/18 00:00 01/28/18 04:00 Temperature 98.1 F 97.8 F 97.8 F Pulse Rate 74 76 64 Respiratory Rate 28 H 22 28 H Blood Pressure 124/65 153/75 H 144/75 H Pulse Oximetry 91 L 95 01/28/18 08:00 01/28/18 09:05 Temperature 98.8 F Pulse Rate 67 Respiratory Rate 20 Blood Pressure 164/71 H Pulse Oximetry 100 100 Intake & Output 01/27/18 01/28/18 01/28/18 18:59 06:59 18:59 Intake Total 1205 / 1205 1182 / 1182 1000 / 1000 Output Total 1150 / 1150 1500 / 1500 Balance 55 / 55 -318 / -318 1000 / 1000 Weight 69 kg Intake: IV 1105 / 1105 105 / 105 1000 / 1000 NS Inj 1,000 ML @ 80 mls/hr IV. 1000 / 1000 1000 / 1000 SIG .[id number] [facility] Rx#:[id number] Keppra Inj 500 MG In NS Inj 100 105 / 105 105 / 105 ML @ 420 mls/hr IV.SIG Q12H [facility] Rx#:[id number] Oral 100 / 100 25 / 25 Other 1052 / 1052 Output: Urine Amount (Catheter) 1150 / 1150 1500 / 1500 Indwelling Urethral Catheter 1150 / 1150 1500 / 1500 Other: Other Intake Source Saline Solution # Voids 2 Date of Last Bowel Movement 01/27/18 01/27/18 01/27/18 # Bowel Movements 1 Result Diagrams: 01/27/18 03:56 01/28/18 08:46 Disinhibition Score: 22.75 Aggression Score: 14.00 Lability Score: 14.00 Agitated Behavior Total Score: 19 - Exam VIDEO [employer]IST: Awake alert but somewhat disoriented answer simple questions appropriately and refuses to open her eyes Ambulates with assistance Hemodynamic/Cardiac: Hemodynamically remained stable Pulmonary/Respiratory: Bilateral good breath sounds somewhat poor inspiratory effort and patient has significant senile emphysema Abdomen/GI Nutrition: Soft patulous patient refuses to take more than a few sips of orange juice and will need temporary feeding tube Renal/I&O: Renal function preserved patient well hydrated with IV fluids Assessment and Plan Attestation: Transfer patient to floor PEG placement After that patient can be discharged to rehab or SNF Critical care 32 minutes
--- NOTE | 2018-01-28 11:49 | P.CONGI ---
History of Present Illness Consult date: 01/28/18 Consult reason: PEG tube placement Chief complaint: Subdural Hematoma History of Present Illness: This is a 87 yo F who was brought to [facility] from [facility] for management of subdural and subarachnoid hemorrhage she sustained after a fall. Prior to fall pt was fairly independent at an assisted living facility. Our service has been consulted to evaluate pt for PEG tube placement. According to RN pt has had poor PO intake since arrival and when she was eating she was noted to be coughing after meals. Now she will not wake up enough to eat. Pt is easily awoken in the room but confused and unable to answer my questions appropriately. currently in soft wrist restraints. <Maranda Wisdom - Last Filed: 01/28/18 11:43> Review of Systems unobtainable due to mental status <Maranda Wisdom - Last Filed: 01/28/18 11:43> PMF - History History Provided By: Patient - Medical History Medical History: Medical History (Last Reviewed 01/28/18 @ 08:50 by Clary Garcia, HOSSEIN) CHF (congestive heart failure) COPD (chronic obstructive pulmonary disease) Coronary artery disease Hypertension - Tobacco History Second Hand Smoke Exposure: Yes Tobacco Use In Past 30 Days: No Smoking Status: Former smoker Tobacco Type: Cigarettes - Alcohol History How Often Do You Have a Drink Containing Alcohol: Never - Substance Use History Substance History: No History of Abuse <Maranda Wisdom - Last Filed: 01/28/18 11:43> - Medical History Medical History: Medical History (Last Reviewed 01/28/18 @ 08:50 by HOSSEIN Cardoza) CHF (congestive heart failure) COPD (chronic obstructive pulmonary disease) Coronary artery disease Hypertension <Laura Green - Last Filed: 01/28/18 17:26> Medications and Allergies Active Medications: Active Medications Acetaminophen (Tylenol) 650 mg PO Q4H PRN PRN Reason: PAIN 1-10 AND/OR FEVER >101F Al Hydroxide/Mg Hydroxide (Milk Of Magnesia Liq) 30 ml PO Q6H PRN PRN Reason: constipation Atorvastatin Calcium (Lipitor) 10 mg PO HS [facility] Last Admin: 01/27/18 20:38 Dose: 10 mg Chlorhexidine Gluconate (Chlorhexidine 2% Cloth) 3 pack TOPICAL DAILY@0400 [facility] Stop: 02/01/18 03:59 Last Admin: 01/28/18 04:06 Dose: Not Given Chlorhexidine Gluconate (Chlorhexidine 2% Cloth) 3 pack TOPICAL DAILY@0400 PRN PRN Reason: Extra cloth needed Stop: 02/01/18 03:59 Dextrose (D50w Vial) 50 ml IV.PUSH UNSCH PRN PRN Reason: PER HYPOGLYCEMIA PROTOCOL Docusate Sodium (Colace) 100 mg PO BID [facility] Last Admin: 01/28/18 08:44 Dose: Not Given Enalaprilat (Vasotec Inj) 1.25 mg IV.PUSH Q8H PRN PRN Reason: Blood pressure 180/95 Last Admin: 01/28/18 10:36 Dose: 1.25 mg Gabapentin (Neurontin) 200 mg PO [facility] Last Admin: 01/27/18 20:39 Dose: 200 mg Glucagon (Glucagon Inj) 1 mg OTHER PRN PRN PRN Reason: for Hypoglycemia Protocol Sodium Chloride (Ns Inj) 1,000 mls @ 80 mls/hr IV.SIG .[id number] [facility] Last Admin: 01/28/18 09:12 Dose: 80 mls/hr Acetaminophen (Ofirmev Inj) 1,000 mg in 100 mls @ 400 mls/hr IV.SIG Q6H PRN PRN Reason: PAIN SCALE 1 TO 10 Levetiracetam 500 mg/ Sodium (Chloride) 105 mls @ 420 mls/hr IV.SIG Q12H [facility] Last Infusion: 01/28/18 09:40 Dose: Infused Insulin Human Regular (Novolin R Correctional Sugar Inj) 0 units SQ ACHS [facility]; Protocol Last Admin: 01/28/18 08:42 Dose: Not Given Latanoprost (Xalatan 0.005% Opth Drops) 1 drop EACH EYE QPM [facility] Last Admin: 01/27/18 20:40 Dose: 1 drop Loratadine (Claritin) 10 mg PO DAILY [facility] Last Admin: 01/28/18 09:12 Dose: 10 mg Melatonin (Melatonin) 5 mg PO [facility] Last Admin: 01/27/18 20:38 Dose: 5 mg Metoprolol Succinate (Toprol Xl) 50 mg PO DAILY [facility] Last Admin: 01/28/18 09:12 Dose: 50 mg Montelukast Sodium (Singulair) 10 mg PO QPM [facility] Last Admin: 01/27/18 20:38 Dose: 10 mg Multivitamins (Theragran) 1 tab PO EVERY OTHER DAY [facility] Last Admin: 01/28/18 09:12 Dose: 1 tab Mupirocin (Bactroban 2% Nasal Oint) 1 applicatio EACH NARE BID [facility] Last Admin: 01/28/18 09:12 Dose: 1 applicatio Ondansetron HCl (Zofran Odt) 4 mg PO Q4H PRN PRN Reason: NAUSEA Pantoprazole Sodium (Protonix) 20 mg PO DAILY [facility] Last Admin: 01/28/18 09:12 Dose: 20 mg Polyethylene Glycol (Miralax) 17 gm PO DAILY [facility] Last Admin: 01/28/18 08:44 Dose: Not Given Sertraline HCl (Zoloft) 200 mg PO DAILY [facility] Last Admin: 01/28/18 09:12 Dose: 200 mg Sodium Chloride (Ns Flush) 2 ml IV.FLUSH UNSCH PRN PRN Reason: FLUSH AFTER USING IV ACCESS Last Admin: 01/28/18 09:12 Dose: 2 ml <Maranda Wisdom - Last Filed: 01/28/18 11:43> Active Medications: Active Medications Acetaminophen (Tylenol) 650 mg PO Q4H PRN PRN Reason: PAIN 1-10 AND/OR FEVER >101F Al Hydroxide/Mg Hydroxide (Milk Of Magnesia Liq) 30 ml PO Q6H PRN PRN Reason: constipation Atorvastatin Calcium (Lipitor) 10 mg PO HS [facility] Last Admin: 01/27/18 20:38 Dose: 10 mg Chlorhexidine Gluconate (Chlorhexidine 2% Cloth) 3 pack TOPICAL DAILY@0400 [facility] Stop: 02/01/18 03:59 Last Admin: 01/28/18 04:06 Dose: Not Given Chlorhexidine Gluconate (Chlorhexidine 2% Cloth) 3 pack TOPICAL DAILY@0400 PRN PRN Reason: Extra cloth needed Stop: 02/01/18 03:59 Dextrose (D50w Vial) 50 ml IV.PUSH UNSCH PRN PRN Reason: PER HYPOGLYCEMIA PROTOCOL Docusate Sodium (Colace) 100 mg PO BID [facility] Last Admin: 01/28/18 08:44 Dose: Not Given Enalaprilat (Vasotec Inj) 1.25 mg IV.PUSH Q8H PRN PRN Reason: Blood pressure 180/95 Last Admin: 01/28/18 10:36 Dose: 1.25 mg Gabapentin (Neurontin) 200 mg PO HS [facility] Last Admin: 01/27/18 20:39 Dose: 200 mg Glucagon (Glucagon Inj) 1 mg OTHER PRN PRN PRN Reason: for Hypoglycemia Protocol Sodium Chloride (Ns Inj) 1,000 mls @ 80 mls/hr IV.SIG .[id number] [facility] Last Admin: 01/28/18 09:12 Dose: 80 mls/hr Acetaminophen (Ofirmev Inj) 1,000 mg in 100 mls @ 400 mls/hr IV.SIG Q6H PRN PRN Reason: PAIN SCALE 1 TO 10 Levetiracetam 500 mg/ Sodium (Chloride) 105 mls @ 420 mls/hr IV.SIG Q12H [facility] Last Infusion: 01/28/18 09:40 Dose: Infused Vancomycin HCl 1,000 mg/ (Sodium Chloride) 250 mls @ 250 mls/hr IV.SIG [employer] [facility] Stop: 01/31/18 11:50 Insulin Human Regular (Novolin R Correctional Sugar Inj) 0 units SQ ACHS [facility]; Protocol Last Admin: 01/28/18 13:24 Dose: Not Given Latanoprost (Xalatan 0.005% Opth Drops) 1 drop EACH EYE QPM [facility] Last Admin: 01/27/18 20:40 Dose: 1 drop Loratadine (Claritin) 10 mg PO DAILY [facility] Last Admin: 01/28/18 09:12 Dose: 10 mg Melatonin (Melatonin) 5 mg PO [facility] Last Admin: 01/27/18 20:38 Dose: 5 mg Metoprolol Succinate (Toprol Xl) 50 mg PO DAILY [facility] Last Admin: 01/28/18 09:12 Dose: 50 mg Montelukast Sodium (Singulair) 10 mg PO QPM [facility] Last Admin: 01/27/18 20:38 Dose: 10 mg Multivitamins (Theragran) 1 tab PO EVERY OTHER DAY [facility] Last Admin: 01/28/18 09:12 Dose: 1 tab Mupirocin (Bactroban 2% Nasal Oint) 1 applicatio EACH NARE BID [facility] Last Admin: 01/28/18 09:12 Dose: 1 applicatio Ondansetron HCl (Zofran Odt) 4 mg PO Q4H PRN PRN Reason: NAUSEA Pantoprazole Sodium (Protonix) 20 mg PO DAILY [facility] Last Admin: 01/28/18 09:12 Dose: 20 mg Polyethylene Glycol (Miralax) 17 gm PO DAILY [facility] Last Admin: 01/28/18 08:44 Dose: Not Given Sertraline HCl (Zoloft) 200 mg PO DAILY [facility] Last Admin: 01/28/18 09:12 Dose: 200 mg Sodium Chloride (Ns Flush) 2 ml IV.FLUSH UNSCH PRN PRN Reason: FLUSH AFTER USING IV ACCESS Last Admin: 01/28/18 09:12 Dose: 2 ml <Hemaidan,Ammar - Last Filed: 01/28/18 17:26> Allergies Allergy/AdvReac Type Severity Reaction Status Date / Time Penicillins Allergy Mild Shakiness Verified 01/26/18 05:13 acetaminophen [From Percocet] Allergy Itching Unverified 01/26/18 05:14 metformin Allergy Nausea/Vomi Verified 01/26/18 05:15 ting oxycodone [From Percocet] Allergy Itching Unverified 01/26/18 05:14 Home Medications Medication Instructions Recorded Confirmed Type aspirin [Aspirin Low Dose] 81 mg PO DAILY 01/26/18 01/26/18 History atorvastatin [Lipitor] 10 mg PO HS 01/26/18 01/26/18 History betamethasone dipropionate TOPICAL DAILY 01/26/18 History gabapentin 200 mg PO HS 01/26/18 01/26/18 History ipratropium bromide 2 spray INTRANASAL BID 01/26/18 01/26/18 History isosorbide mononitrate 30 mg PO DAILY 01/26/18 01/26/18 History latanoprost 1 drp OPHTHALMIC (EYE) QPM 01/26/18 01/26/18 History loratadine 10 mg PO DAILY 01/26/18 01/26/18 History lorazepam 1 mg PO 01/26/18 01/26/18 History melatonin 3 mg PO 01/26/18 01/26/18 History metoprolol succinate 50 mg PO DAILY 01/26/18 01/26/18 History montelukast 10 mg PO QPM 01/26/18 01/26/18 History multivitamin [Multiple Vitamins] 1 tab PO EVERY OTHER DAY 01/26/18 01/26/18 History omeprazole 20 mg PO DAILY 01/26/18 01/26/18 History sertraline 200 mg PO DAILY 01/26/18 01/26/18 History Exam Vital signs: Vital Signs 01/27/18 12:00 01/27/18 16:00 01/27/18 19:32 Temperature 99.0 F 98.2 F Pulse Rate 63 73 Respiratory Rate 21 21 Blood Pressure 173/78 H 144/60 H Pulse Oximetry 96 95 97 01/27/18 20:00 01/28/18 00:00 01/28/18 04:00 Temperature 98.1 F 97.8 F 97.8 F Pulse Rate 74 76 64 Respiratory Rate 28 H 22 28 H Blood Pressure 124/65 153/75 H 144/75 H Pulse Oximetry 91 L 95 01/28/18 08:00 01/28/18 09:05 Temperature 98.8 F Pulse Rate 67 Respiratory Rate 20 Blood Pressure 164/71 H Pulse Oximetry 100 100 Intake & Output 01/27/18 01/28/18 01/28/18 18:59 06:59 18:59 Intake Total 1205 / 1205 1182 / 1182 1105 / 1105 Output Total 1150 / 1150 1500 / 1500 Balance 55 / 55 -318 / -318 1105 / 1105 Weight 69 kg Intake: IV 1105 / 1105 105 / 105 1105 / 1105 NS Inj 1,000 ML @ 80 mls/hr IV. 1000 / 1000 1000 / 1000 SIG .[id number] [facility] Rx#:[id number] Keppra Inj 500 MG In NS Inj 100 105 / 105 105 / 105 105 / 105 ML @ 420 mls/hr IV.SIG Q12H [facility] Rx#:[id number] Oral 100 / 100 25 / 25 Other 1052 / 1052 Output: Urine Amount (Catheter) 1150 / 1150 1500 / 1500 Indwelling Urethral Catheter 1150 / 1150 1500 / 1500 Other: Other Intake Source Saline Solution # Voids 2 Date of Last Bowel Movement 01/27/18 01/27/18 01/27/18 # Bowel Movements 1 - Constitutional no acute distress - Routine HEENT Exam Head: Present: normocephalic, atraumatic - Routine Respiratory Exam Absent: accessory muscle use - Routine Abdominal Exam Present: soft, normoactive bowel sounds. Absent: tenderness - Routine Skin Exam Present: dry, warm <Maranda Wisdom - Last Filed: 01/28/18 11:43> Vital signs: Vital Signs 01/27/18 19:32 01/27/18 20:00 01/28/18 00:00 Temperature 98.1 F 97.8 F Pulse Rate 74 76 Respiratory Rate 28 H 22 Blood Pressure 124/65 153/75 H Pulse Oximetry 97 91 L 95 01/28/18 04:00 01/28/18 08:00 01/28/18 09:05 Temperature 97.8 F 98.8 F Pulse Rate 64 67 Respiratory Rate 28 H 20 Blood Pressure 144/75 H 164/71 H Pulse Oximetry 100 100 01/28/18 12:00 Temperature 97.9 F Pulse Rate 68 Respiratory Rate 23 Blood Pressure 155/73 H Pulse Oximetry 96 Intake & Output 01/27/18 01/28/18 01/28/18 18:59 06:59 18:59 Intake Total 1205 / 1205 1182 / 1182 1105 / 1105 Output Total 1150 / 1150 1500 / 1500 Balance 55 / 55 -318 / -318 1105 / 1105 Weight 69 kg Intake: IV 1105 / 1105 105 / 105 1105 / 1105 NS Inj 1,000 ML @ 80 mls/hr IV. 1000 / 1000 1000 / 1000 SIG .[id number] [facility] Rx#:[id number] Keppra Inj 500 MG In NS Inj 100 105 / 105 105 / 105 105 / 105 ML @ 420 mls/hr IV.SIG Q12H [facility] Rx#:[id number] Oral 100 / 100 25 / 25 Other 1052 / 1052 Output: Urine Amount (Catheter) 1150 / 1150 1500 / 1500 Indwelling Urethral Catheter 1150 / 1150 1500 / 1500 Other: Other Intake Source Saline Solution # Voids 2 Date of Last Bowel Movement 01/27/18 01/27/18 01/27/18 # Bowel Movements 1 <Laura Green - Last Filed: 01/28/18 17:26> Results - Labs CBC & Chem 7: 01/27/18 03:56 01/28/18 08:46 Labs: Laboratory Results - last 24 hr 01/27/18 01/27/18 01/28/18 16:41 19:47 08:14 Sodium Potassium Chloride Carbon Dioxide Anion Gap BUN Creatinine Estimated GFR POC Glucose 104 115 H 105 Random Glucose Calcium Magnesium 01/28/18 08:46 Sodium 137 Potassium 3.9 Chloride 103 Carbon Dioxide 25.8 Anion Gap 8 BUN 17 Creatinine 0.68 Estimated GFR 82 L POC Glucose Random Glucose 100 Calcium 8.9 Magnesium 1.6 <Maranda Wisdom - Last Filed: 01/28/18 11:43> - Labs CBC & Chem 7: 01/27/18 03:56 01/28/18 08:46 Labs: Laboratory Results - last 24 hr 01/27/18 01/28/18 01/28/18 19:47 08:14 08:46 Sodium 137 Potassium 3.9 Chloride 103 Carbon Dioxide 25.8 Anion Gap 8 BUN 17 Creatinine 0.68 Estimated GFR 82 L POC Glucose 115 H 105 Random Glucose 100 Calcium 8.9 Magnesium 1.6 01/28/18 01/28/18 13:05 17:06 Sodium Potassium Chloride Carbon Dioxide Anion Gap BUN Creatinine Estimated GFR POC Glucose 133 H 96 Random Glucose Calcium Magnesium <Laura Green - Last Filed: 01/28/18 17:26> Assessment and Plan (1) Dysphagia Status: Acute Code(s): R13.10 - Dysphagia, unspecified - Plan Assessment: - Dysphagia- baseline was independent as assisted nursing facility- transfer from [facility] to [facility] for management of subdural and subarachnoid hemorrhage she sustained from a fall. Our service has been consulted for possible PEG tube placement. Pt with poor PO intake since arrival, according to RN pt has been difficult to keep awake for her to eat. Also nurses have noticed pt coughing after meals. Speech therapy eval pending. 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 Green and this note is written on his behalf <Maranda Wisdom - Last Filed: 01/28/18 11:43> (1) Dysphagia Status: Acute Code(s): R13.10 - Dysphagia, unspecified - Plan Chart review, agree with above note, plan for PEG tube tomorrow <Laura Green - Last Filed: 01/28/18 17:26>
[2018-01-28] MEDS ORDERED: Vancomycin Inj 1,000 MG in Sodium Chlor 0.9% Inj 250 ML IV.SIG SCH (11:50)
[2018-01-28] MEDS: Montelukast 10 MG Tablet PO SCH (17:41)
[2018-01-28] MEDS: Latanoprost 0.005% Opth Drops 2.5 ML Bottle EACH EYE SCH (17:41)
[2018-01-28] MEDS: Melatonin 5 MG Tablet PO SCH (20:10)
[2018-01-28] MEDS: Gabapentin 100 MG Capsule PO SCH (20:11)
[2018-01-29] MEDS: Chlorhexidine Gluconate 2% 1 Pack (2 Cloths) TOPICAL SCH (04:10)
[2018-01-29] MEDS ORDERED: Chlorhexidine Gluconate 2% 1 Pack (2 Cloths) TOPICAL SCH (04:45)
[2018-01-29] MEDS ORDERED: Sodium Chlor 0.9% Inj 500 ML IV.SIG SCH (05:00)
[2018-01-29] MEDS: Dextrose 5%/NaCl 0.9% Inj 1,000 ML IV.SIG SCH (09:57)
[2018-01-29] MEDS: Mupirocin 2% Nasal Oint Topical Syringe EACH NARE SCH ×2 (10:00→20:43)
[2018-01-29] MEDS: Insulin NovoLIN Regular Correctional Sugar Inj SQ SCH ×4 (10:10→21:27)
[2018-01-29] MEDS: Sod Chloride 0.9% Inj 1,000 ML IV.SIG SCH (10:11)
[2018-01-29] MEDS: Docusate Sodium 100 MG Capsule PO SCH ×2 (10:12→20:41)
[2018-01-29] MEDS: Loratadine 10 MG Tablet PO SCH (10:12)
[2018-01-29] MEDS: Polyethylene Glycol 3350 17 GM Packet PO SCH (10:12)
[2018-01-29] MEDS: Sertraline 100 MG Tablet PO SCH (10:13)
[2018-01-29] MEDS: Pantoprazole Sodium 20 MG DR Tablet PO SCH (10:13)
[2018-01-29] MEDS ORDERED: Sodium Chlor 0.9% Inj 250 ML ONE (11:00)
--- NOTE | 2018-01-29 11:08 | P.DIET ---
Nutritional Evaluation Type of nutrition evaluation: initial Nutrition screening[place] [facility] [place] Subjective Subjective Comments: s/p fall Objective - Diagnosis Subdural Hematoma - Objective [place] body weight: 152 kg (IBW =100#) Body Weight Used for Calculations: Upper end of IBW (110#/ 50 kg) Energy Needs - Lower Range (kCal/kg): 25 Energy Needs - Upper Range (kCal/kg): 30 Lower Limit kCal/kg (kCals): 1,250 Upper Limit kCal/kg (kCals): 1,500 Lower Limit Protein Factor (Grams per Kg): 1.0 Upper Limit Protein Factor (Grams per Kg): 1.5 Lower Protein Needs (Protein): 50 Upper Protein Needs (Protein): 75 Fluid Factor (ml/kg): 30 Estimated Fluid Needs (ml): 1,500 Dietitian Reviewed in Medical Record: Current diet, Curent medications, Intake & Output, Labs, Medical history Diet Order: NPO Speech Therapy Recommendations: Yes (Mechanical Soft, thin liqs) Objective Comments: Meds include MVI Assessment Assessment: Pt with reported poor po intake. GI has been consulted for PEG placement. Would recommend calorie counts to quantify po intake prior to PEG placement. Trial of ng-t feeding may also be advisable. Pt still with BMI of 29.7 and may recover enough to meet relatively low nutritional needs (d/t short stature and advanced age) without a PEG. ST has recommended diet advance today. For TF recommendations: Jevity 1.5 @ 40 mls/hr will adequately meet needs by providing 1440 kcals, 61 gms protein and 730 mls of free water. Recommendations: 1. Consider calorie count prior to PEG 2. Consider temporary ng-t feedings prior to PEG 3. For TF: Jevity 1.5 @ 40 mls/hr goal Dietitian to Monitor: Lab values, Intake & Output, Weight change, PO Intake, Diet advancement, Swallow recommendations, Medical course
--- NOTE | 2018-01-29 11:18 | GIPROC ---
[facility] [address] [facility]. [facility], [address] EGD WITH PEG PROCEDURE REPORT EXAM DATE: 01/29/2018 PATIENT NAME: Belinda Thakkar MR#: [id number] BIRTHDATE: 1930 ATTENDING: Laura Green MD ORDER #: [id number] COUNSEL: Candida Somers RN STATUS: inpatient INDICATIONS: The patient is a 87 yr old female here for an EGD with PEG due to dysphagia PROCEDURE PERFORMED: EGD with biopsy EGD with PEG placement MEDICATIONS: None and Per Anesthesia. TOPICAL ANESTHETIC: none CONSENT: The patient understands the risks and benefits of the procedure and understands that these risks include, but are not limited to: sedation, allergic reaction, infection, perforation and/or bleeding. Alternative means of evaluation and treatment include, among others: physical exam, x-rays, and/or surgical intervention. The patient elects to proceed with this endoscopic procedure. medical equipment was checked for proper function. Hand hygiene and appropriate measures for infection prevention was taken. After the risks, benefits and alternatives of the procedure were thoroughly explained, Informed consent was verified, confirmed and timeout was successfully executed by the treatment team. The patient was anesthetized with topical anesthesia and the [employer] [id number] endoscope was introduced through the mouth and advanced to the second portion of the duodenum. The instrument was slowly withdrawn as the mucosa was fully examined. An ulcer was found in the body and the antrum of the stomach. Patient has severe gastritis and one in the body of the stomach biopsy was done The stomach was then inflated with air, and by a combination of transillumination and manual palpation, the site for the gastrostomy tube placement was selected and marked on the anterior abdominal wall. The skin of the anterior abdomen was surgically prepped and draped with sterile towels. Utilizing strict sterile technique, the selected site was then anesthetized with 1% xylocaine by injection into the skin and subcutaneous tissue. A 1 cm incision was made through the skin and subcutaneous tissue, and the needle/cannula assembly was then passed through the abdominal wall and through the anterior wall of the stomach, maintaining visualization with the endoscope. A snare device previously placed through the instrument channel was then opened and placed around the cannula, the needle was removed, and the insertion wire was passed through the cannula and into the stomach lumen. The snare was then loosened from the cannula, and repositioned to snare the insertion wire. The snare was then pulled up to the endoscope distal tip, and the scope was then withdrawn bringing with it the snare and insertion wire. The insertion wire was then released from the snare, and then loop-attached to the Bard 20 Fr gastrostomy tube. Using the "pull technique", the G-tube was then pulled into place by traction on the insertion wire at the abdominal wall end. The G-tube insertion site was then cleansed once again, and the external bolster was placed over the tube to secure it to the abdominal wall. A sterile dressing was then applied, and the procedure terminated. no abnormalities The gastroscope was then slowly withdrawn and removed. ADVERSE EVENT: There were no complications. IMPRESSIONS: 1. An ulcer was found in the body and the antrum of the stomach 2. No abnormalities RECOMMENDATIONS: 1. Continue PPI 2. Anti-reflux regimen N.p.o. for 6 hours then may use PEG tube if site okay 3. Await biopsy results. Biopsy results will not be ready for 7-10 days. If you don't hear from us in two weeks, call our office for biopsy results. REPEAT EXAM: exam as needed Laura Green MD eSigned: Laura Green MD 01/29/2018 11:18 AM cc: PATIENT NAME: Belinda Thakkar MR#: [id number]
--- NOTE | 2018-01-29 11:29 | P.PNGI ---
Subjective Interval history: Patient is more awake today but still having difficulty swallowing, had an upper endoscopy with biopsy and PEG tube placement Physical Exam Vital signs: Vital Signs 01/28/18 12:00 01/28/18 16:00 01/28/18 20:00 Temperature 97.9 F 98.8 F 98.2 F Pulse Rate 68 54 L 69 Respiratory Rate 23 24 16 Blood Pressure 155/73 H 151/70 H 164/70 H Pulse Oximetry 96 96 100 01/28/18 22:00 01/29/18 00:00 01/29/18 03:47 Temperature 98.0 F 97.8 F 97.9 F Pulse Rate 79 94 H 86 Respiratory Rate 16 18 16 Blood Pressure 134/79 121/71 120/69 Pulse Oximetry 95 95 95 01/29/18 04:00 01/29/18 08:00 Temperature 97.5 F L Pulse Rate 90 Respiratory Rate 15 16 Blood Pressure 131/72 Pulse Oximetry 93 L Intake & Output 01/28/18 01/29/18 01/29/18 18:59 06:59 18:59 Intake Total 2225 / 2225 2277 / 2277 Balance 2225 / 2225 2277 / 2277 Weight 69 kg Intake: IV 2105 / 2105 1105 / 1105 NS Inj 1,000 ML @ 80 mls/hr IV. 1999 / 1999 1000 / 1000 SIG .[id number] [facility] Rx#:[id number] Keppra Inj 500 MG In NS Inj 100 105 / 105 105 / 105 ML @ 420 mls/hr IV.SIG Q12H [facility] Rx#:[id number] Oral 120 / 120 120 / 120 Other 1052 / 1052 Other: Other Intake Source Saline Solution # Voids 3 3 Date of Last Bowel Movement 01/27/18 01/27/18 # Bowel Movements 1 - Constitutional no acute distress - Routine HEENT Exam Head: Present: normocephalic, atraumatic Eye: Present: EOMI, PERRL - Routine Neck Exam Present: supple - Routine Cardiovascular Exam Present: RRR, S1, S2 - Routine Abdominal Exam Present: soft, normoactive bowel sounds - Urinary Catheter Management Indwelling Urethral Catheter Cath placed during this visit: yes Reason for continuing: Hourly intake/output Insertion date: 01/26/18 Results - Labs CBC & Chem 7: 01/27/18 03:56 01/28/18 08:46 Laboratory Results - last 24 hr 01/28/18 01/28/18 01/28/18 13:05 17:06 20:06 POC Glucose 133 H 96 83 01/29/18 07:46 POC Glucose 73 Assessment and Plan (1) Dysphagia Status: Acute Code(s): R13.10 - Dysphagia, unspecified - Plan Patient is laying in bed, seems to be comfortable, had dysphagia, EGD show gastric ulcer biopsy was done, PEG tube was placed without any difficulty, the PEG tube was verified at the end of the case by an endoscopy
--- NOTE | 2018-01-29 11:35 | P.PNNS ---
Subjective Interval history: Pt more awake today. Denies headache. Follows commands well. Pt reportedly going for upper endoscopy and PEG today given her poor po intake. <Shahid Foxic - Last Filed: 01/29/18 11:28> Physical Exam Vital signs: Vital Signs 01/28/18 12:00 01/28/18 16:00 01/28/18 20:00 Temperature 97.9 F 98.8 F 98.2 F Pulse Rate 68 54 L 69 Respiratory Rate 23 24 16 Blood Pressure 155/73 H 151/70 H 164/70 H Pulse Oximetry 96 96 100 01/28/18 22:00 01/29/18 00:00 01/29/18 03:47 Temperature 98.0 F 97.8 F 97.9 F Pulse Rate 79 94 H 86 Respiratory Rate 16 18 16 Blood Pressure 134/79 121/71 120/69 Pulse Oximetry 95 95 95 01/29/18 04:00 01/29/18 08:00 Temperature 97.5 F L Pulse Rate 90 Respiratory Rate 15 16 Blood Pressure 131/72 Pulse Oximetry 93 L Intake & Output 01/28/18 01/29/18 01/29/18 18:59 06:59 18:59 Intake Total 2225 / 2225 2277 / 2277 Balance 2225 / 2225 2277 / 2277 Weight 69 kg Intake: IV 2105 / 2105 1105 / 1105 NS Inj 1,000 ML @ 80 mls/hr IV. 1999 / 1999 1000 / 1000 SIG .[id number] [facility] Rx#:[id number] Keppra Inj 500 MG In NS Inj 100 105 / 105 105 / 105 ML @ 420 mls/hr IV.SIG Q12H [facility] Rx#:[id number] Oral 120 / 120 120 / 120 Other 1052 / 1052 Other: Other Intake Source Saline Solution # Voids 3 3 Date of Last Bowel Movement 01/27/18 01/27/18 # Bowel Movements 1 - Constitutional no acute distress, average body habitus - Routine HEENT Exam Head: Absent: atraumatic (Right periorbital ecchymosis and edema) Eye: Present: PERRL, periorbital ecchymosis (right side.), periorbital swelling (Right side.). Absent: conjunctival icterus - Routine Respiratory Exam Present: CTA bilaterally. Absent: rales, respiratory distress, rhonchi, wheezes - Routine Cardiovascular Exam Present: RRR, S1, S2. Absent: murmur - Routine Abdominal Exam Present: soft, normoactive bowel sounds. Absent: tenderness, distended - Routine Skin Exam Present: ecchymosis (Right periorbital, face and right forearm.). Absent: cyanosis, erythema - Routine Neurological Exam Present: alert (More alert this morning.), moving all extremities - Detailed Neurological Exam: Coma Scale Eye Opening: Spontaneous Verbal Response: Confused Motor Response: Obey commands Catherine Coma Scale Total: 14 - Routine Psychiatric Exam Present: unable to assess - Urinary Catheter Management Indwelling Urethral Catheter Cath placed during this visit: yes Reason for continuing: Hourly intake/output Insertion date: 01/26/18 <Frankie Fox - Last Filed: 01/29/18 11:28> Vital signs: Vital Signs 01/28/18 16:00 01/28/18 20:00 01/28/18 22:00 Temperature 98.8 F 98.2 F 98.0 F Pulse Rate 54 L 69 79 Respiratory Rate 24 16 16 Blood Pressure 151/70 H 164/70 H 134/79 Pulse Oximetry 96 100 95 01/29/18 00:00 01/29/18 03:47 01/29/18 04:00 Temperature 97.8 F 97.9 F Pulse Rate 94 H 86 Respiratory Rate 18 16 15 Blood Pressure 121/71 120/69 Pulse Oximetry 95 95 01/29/18 08:00 01/29/18 11:33 Temperature 97.5 F L 98.3 F Pulse Rate 90 102 H Respiratory Rate 16 22 Blood Pressure 131/72 115/66 Pulse Oximetry 93 L 96 Intake & Output 01/28/18 01/29/18 01/29/18 18:59 06:59 18:59 Intake Total 2225 / 2225 2277 / 2277 710 / 710 Balance 2225 / 2225 2277 / 2277 710 / 710 Weight 69 kg Intake: IV 2105 / 2105 1105 / 1105 10 / 10 NS Inj 1,000 ML @ 80 mls/hr IV. 1999 / 1999 1000 / 1000 SIG .[id number] [facility] Rx#:[id number] Keppra Inj 500 MG In NS Inj 100 105 / 105 105 / 105 10 / 10 ML @ 420 mls/hr IV.SIG Q12H [facility] Rx#:[id number] Oral 120 / 120 120 / 120 Anesthesia Amount 700 / 700 Other 1052 / 1052 Other: Other Intake Source Saline Solution # Voids 3 3 Date of Last Bowel Movement 01/27/18 01/27/18 01/28/18 # Bowel Movements 1 - Urinary Catheter Management Indwelling Urethral Catheter Cath placed during this visit: no <Stevie Yost - Last Filed: 01/29/18 12:11> Assessment and Plan - Assessment (1) Traumatic brain injury Code(s): S06.9X9A - Unspecified intracranial injury with loss of consciousness of unspecified duration, initial encounter Status: Acute (2) Traumatic subarachnoid hemorrhage Code(s): S06.6X9A - Traumatic subarachnoid hemorrhage with loss of consciousness of unspecified duration, initial encounter Status: Acute (3) Subdural hemorrhage Code(s): I62.00 - Nontraumatic subdural hemorrhage, unspecified Status: Acute - Plan A: 87-year-old lady was transferred from [facility] fall at home with a traumatic brain injury involving the small right frontal subdural hemorrhage along with traumatic subarachnoid hemorrhage right more than left with generalized atrophy and no mass-effect. P: Continue to monitor Neuro exam. Continue with sequential compression devices for DVT prophylaxis. Continue with GI prophylaxis. Keppra for seizure prophylaxis. <Frankie Fox - Last Filed: 01/29/18 11:28> - Assessment (1) Traumatic brain injury Code(s): S06.9X9A - Unspecified intracranial injury with loss of consciousness of unspecified duration, initial encounter Status: Acute Qualifiers: Encounter type: initial encounter (2) Traumatic subarachnoid hemorrhage Code(s): S06.6X9A - Traumatic subarachnoid hemorrhage with loss of consciousness of unspecified duration, initial encounter Status: Acute Qualifiers: Encounter type: initial encounter (3) Subdural hemorrhage Code(s): I62.00 - Nontraumatic subdural hemorrhage, unspecified Status: Acute - Attending Attestation The exam, history, and the medical decision-making described in the above note were completed with the assistance of the mid-level provider. I reviewed and agree with the findings presented. I attest that I had a [id number] encounter with the patient on the same day, and personally performed and documented my assessment and findings in the medical record. <Stevie Yost - Last Filed: 01/29/18 12:11>
--- NOTE | 2018-01-29 15:54 | P.PNGS ---
Subjective Interval history: Confused Minimal PO intake PEG placement today Physical Exam Vital signs: Vital Signs 01/28/18 16:00 01/28/18 20:00 01/28/18 22:00 Temperature 98.8 F 98.2 F 98.0 F Pulse Rate 54 L 69 79 Respiratory Rate 24 16 16 Blood Pressure 151/70 H 164/70 H 134/79 Pulse Oximetry 96 100 95 01/29/18 00:00 01/29/18 03:47 01/29/18 04:00 Temperature 97.8 F 97.9 F Pulse Rate 94 H 86 Respiratory Rate 18 16 15 Blood Pressure 121/71 120/69 Pulse Oximetry 95 95 01/29/18 08:00 01/29/18 11:33 Temperature 97.5 F L 98.3 F Pulse Rate 90 102 H Respiratory Rate 16 22 Blood Pressure 131/72 115/66 Pulse Oximetry 93 L 96 Intake & Output 01/28/18 01/29/18 01/29/18 18:59 06:59 18:59 Intake Total 2225 / 2225 2277 / 2277 810 / 810 Balance 2225 / 2225 2277 / 2277 810 / 810 Weight 69 kg Intake: IV 2105 / 2105 1105 / 1105 110 / 110 NS Inj 1,000 ML @ 80 mls/hr IV. 1999 / 1999 1000 / 1000 SIG .[id number] [facility] Rx#:[id number] Keppra Inj 500 MG In NS Inj 100 105 / 105 105 / 105 110 / 110 ML @ 420 mls/hr IV.SIG Q12H [facility] Rx#:[id number] Oral 120 / 120 120 / 120 Anesthesia Amount 700 / 700 Other 1052 / 1052 Other: Other Intake Source Saline Solution # Voids 3 3 Date of Last Bowel Movement 01/27/18 01/27/18 01/28/18 # Bowel Movements 1 Narrative: GENERAL: 87-year-old elderly female lying in bed no acute distress. SKIN: Warm and dry. HEAD: Normocephalic. EYES: Pupils equal and round. No scleral icterus. ENT: No nasal bleeding or discharge. Mucous membranes pink and moist. NECK: Trachea midline. No JVD. CARDIOVASCULAR: Regular rate and rhythm. RESPIRATORY: No accessory muscle use. Lungs clear and diminished to auscultation. Breath sounds equal bilaterally. GASTROINTESTINAL: Abdomen soft, non-tender, nondistended. + BS. MUSCULOSKELETAL: Extremities without cyanosis, or edema. MAEW, + perfused NEUROLOGICAL: Lethargic and confused. Normal speech. - Urinary Catheter Management Indwelling Urethral Catheter Cath placed during this visit: yes Reason for continuing: Hourly intake/output Insertion date: 01/26/18 Assessment and Plan - Plan [place]: Fall from the standing position at home. Trauma transfer. INJURIES: RIGHT eyelid lac 5mm SDH SAH PMHx: DM, HLD, glaucoma, GERD, depression RIGHT eyelid lac, 5mm SDH, SAH Neurosurgery consulted Nonoperative management Neuro checks Confused Neuropsychologist consulted Ani NAPIER-PT/OT Rehab placement Anorexia ADA diet ordered, patient not eating Gastroenterology consulted Family agreeable to PEG placement-plan for today Start tube feedings tomorrow Plan of care discussed with patient at bedside. Collaborating Trauma surgeon agrees with plan. Case management consulted to assist with discharge planning. Plan for discharge to SNF in 1-2 days.
[2018-01-29] MEDS: Latanoprost 0.005% Opth Drops 2.5 ML Bottle EACH EYE SCH (17:21)
[2018-01-29] MEDS ORDERED: Lidocaine PF 1% Inj 5 ML Syringe INFILTRATN ONE (17:59)
[2018-01-29] MEDS: Montelukast 10 MG Tablet PO SCH (19:14)
[2018-01-29] MEDS: Gabapentin 100 MG Capsule PO SCH (20:42)
[2018-01-29] MEDS: Melatonin 5 MG Tablet PO SCH (20:43)
[2018-01-30] MEDS: Dextrose 5%/NaCl 0.9% Inj 1,000 ML IV.SIG SCH (03:04)
[2018-01-30] MEDS: Chlorhexidine Gluconate 2% 1 Pack (2 Cloths) TOPICAL SCH (03:04)
--- NOTE | 2018-01-30 08:16 | P.PNGI ---
Subjective Interval history: Pt resting in bed, in no apparent distress. PEG tube site with no active drainage or redness covered with clean and dry gauze Physical Exam Vital signs: Vital Signs 01/29/18 11:33 01/29/18 16:00 01/29/18 20:00 Temperature 98.3 F 97.4 F L 98.2 F Pulse Rate 102 H 95 H Respiratory Rate 22 18 Blood Pressure 115/66 164/72 H 132/61 Pulse Oximetry 96 98 92 L 01/30/18 00:00 Temperature 98.3 F Pulse Rate 96 H Respiratory Rate 18 Blood Pressure 128/58 L Pulse Oximetry 93 L Intake & Output 01/29/18 01/30/18 01/30/18 18:59 06:59 18:59 Intake Total 810 / 810 1355 / 1355 Balance 810 / 810 1355 / 1355 Intake: IV 110 / 110 1355 / 1355 D5W/Normal Saline Inj 1,000 ML 1000 / 1000 @ 80 mls/hr IV.SIG .[id number] [facility] Rx#:[id number] Vancomycin Inj 1,000 MG In NS 250 / 250 Inj 250 ML @ 250 mls/hr IV.SIG ANALYSIS EVALUATOR [facility] Rx#:[id number] Keppra Inj 500 MG In NS Inj 100 110 / 110 105 / 105 ML @ 420 mls/hr IV.SIG Q12H [facility] Rx#:[id number] Anesthesia Amount 700 / 700 Other: Date of Last Bowel Movement 01/28/18 01/28/18 - Constitutional no acute distress - Routine HEENT Exam Head: Present: normocephalic, atraumatic - Routine Respiratory Exam Absent: accessory muscle use - Routine Abdominal Exam Present: soft, normoactive bowel sounds. Absent: tenderness Comments: PEG tube clamped, site with no redness, no drainage - Urinary Catheter Management Indwelling Urethral Catheter Cath placed during this visit: yes Reason for continuing: Hourly intake/output Insertion date: 01/26/18 Results - Labs CBC & Chem 7: 01/27/18 03:56 01/28/18 08:46 Laboratory Results - last 24 hr 01/29/18 01/29/18 01/29/18 12:04 17:19 21:19 POC Glucose 83 119 H 110 Assessment and Plan (1) Dysphagia Status: Acute Code(s): R13.10 - Dysphagia, unspecified - Plan Assessment: - Dysphagia- baseline was independent as assisted nursing facility- transfer from [place] to [place] for management of subdural and subarachnoid hemorrhage she sustained from a fall. Our service has been consulted for possible PEG tube placement. Pt with poor PO intake since arrival, according to RN pt has been difficult to keep awake for her to eat. Also nurses have noticed pt coughing after meals. Speech therapy eval pending. Family agreeable to PEG (01/30) S/P EGD with PEG placement yesterday --> Ulcer in the body and the antrum of the stomach. Successful PEG tube placement. Site with no redness or drainage today, covered with clean and dry gauze. Dietary recommended Jevity 1.5 @ 40 mL/hr Plan: EGD biopsy pending Protonix TF- Jevity 1.5 @ 40 mL/hr per dietary GI will sign off, please reconsult as needed Have pt follow up with GI after DC Pt has been seen and examined by myself and Dr. Green and this note is written on his behalf
[2018-01-30] MEDS: Insulin NovoLIN Regular Correctional Sugar Inj SQ SCH ×4 (09:33→22:54)
--- NOTE | 2018-01-30 09:34 | P.PNNS ---
Subjective Interval history: Pt awake and alert. Denies headache. No n/v. Some difficulty focusing vision. Follows commands well. <Frankie Fox - Last Filed: 01/30/18 09:35> Physical Exam Vital signs: Vital Signs 01/29/18 11:33 01/29/18 16:00 01/29/18 20:00 Temperature 98.3 F 97.4 F L 98.2 F Pulse Rate 102 H 95 H Respiratory Rate 22 18 Blood Pressure 115/66 164/72 H 132/61 Pulse Oximetry 96 98 92 L 01/30/18 00:00 01/30/18 04:00 Temperature 98.3 F 97.8 F Pulse Rate 96 H 99 H Respiratory Rate 18 18 Blood Pressure 128/58 L 148/72 H Pulse Oximetry 93 L 97 Intake & Output 01/29/18 01/30/18 01/30/18 18:59 06:59 18:59 Intake Total 810 / 810 1355 / 1355 Balance 810 / 810 1355 / 1355 Weight 69 kg Intake: IV 110 / 110 1355 / 1355 D5W/Normal Saline Inj 1,000 ML 1000 / 1000 @ 80 mls/hr IV.SIG .[id number] [facility] Rx#:[id number] Vancomycin Inj 1,000 MG In NS 250 / 250 Inj 250 ML @ 250 mls/hr IV.SIG KNITTING TEACHER [facility] Rx#:[id number] Keppra Inj 500 MG In NS Inj 100 110 / 110 105 / 105 ML @ 420 mls/hr IV.SIG Q12H [facility] Rx#:[id number] Anesthesia Amount 700 / 700 Other: # Voids 2 Date of Last Bowel Movement 01/28/18 01/28/18 - Constitutional no acute distress, average body habitus, cooperative - Routine HEENT Exam Head: Absent: normocephalic, atraumatic (Right periorbital ecchymosis.) Eye: Present: PERRL. Absent: conjunctival icterus - Routine Respiratory Exam Present: CTA bilaterally. Absent: respiratory distress, rhonchi, wheezes - Routine Cardiovascular Exam Present: RRR, S1, S2. Absent: murmur - Routine Abdominal Exam Present: soft, normoactive bowel sounds. Absent: tenderness, distended - Routine Skin Exam Present: ecchymosis (Right face and forearms.). Absent: cyanosis, erythema - Routine Neurological Exam Present: alert, moving all extremities, facial asymmetry, normal speech. Absent : motor deficit, hearing grossly intact (ELY [place].) - Detailed Neurological Exam: Coma Scale Eye Opening: Spontaneous Verbal Response: Confused Motor Response: Obey commands Catherine Coma Scale Total: 14 - Routine Psychiatric Exam Present: normal affect, cooperative. Absent: agitated - Urinary Catheter Management Indwelling Urethral Catheter Cath placed during this visit: yes Reason for continuing: Hourly intake/output Insertion date: 01/26/18 <Frankie Fox - Last Filed: 01/30/18 09:35> Vital signs: Vital Signs 01/29/18 20:00 01/30/18 00:00 01/30/18 04:00 Temperature 98.2 F 98.3 F 97.8 F Pulse Rate 96 H 99 H Respiratory Rate 18 18 Blood Pressure 132/61 128/58 L 148/72 H Pulse Oximetry 92 L 93 L 97 01/30/18 08:00 01/30/18 12:00 Temperature 99.1 F 100.2 F H Pulse Rate 95 H 99 H Respiratory Rate 18 18 Blood Pressure 123/75 134/65 Pulse Oximetry 96 95 Intake & Output 01/29/18 01/30/18 01/30/18 18:59 06:59 18:59 Intake Total 810 / 810 1355 / 1355 Balance 810 / 810 1355 / 1355 Weight 69 kg Intake: IV 110 / 110 1355 / 1355 D5W/Normal Saline Inj 1,000 ML 1000 / 1000 @ 80 mls/hr IV.SIG .[id number] [facility] Rx#:[id number] Vancomycin Inj 1,000 MG In NS 250 / 250 Inj 250 ML @ 250 mls/hr IV.SIG KNITTING TEACHER [facility] Rx#:[id number] Keppra Inj 500 MG In NS Inj 100 110 / 110 105 / 105 ML @ 420 mls/hr IV.SIG Q12H [facility] Rx#:[id number] Anesthesia Amount 700 / 700 Other: # Voids 2 Date of Last Bowel Movement 01/28/18 01/28/18 - Urinary Catheter Management Indwelling Urethral Catheter Cath placed during this visit: no <Stevie Yost - Last Filed: 01/30/18 16:47> Assessment and Plan - Assessment (1) Traumatic brain injury Code(s): S06.9X9A - Unspecified intracranial injury with loss of consciousness of unspecified duration, initial encounter Status: Acute Qualifiers: Encounter type: initial encounter (2) Traumatic subarachnoid hemorrhage Code(s): S06.6X9A - Traumatic subarachnoid hemorrhage with loss of consciousness of unspecified duration, initial encounter Status: Acute Qualifiers: Encounter type: initial encounter (3) Subdural hemorrhage Code(s): I62.00 - Nontraumatic subdural hemorrhage, unspecified Status: Acute - Plan A: 87-year-old lady was transferred from [facility] fall at home with a traumatic brain injury involving the small right frontal subdural hemorrhage along with traumatic subarachnoid hemorrhage right more than left with generalized atrophy and no mass-effect. P: Continue to monitor Neuro exam. Continue with sequential compression devices for DVT prophylaxis. Continue with GI prophylaxis. Keppra for seizure prophylaxis. <Frankie Fox - Last Filed: 01/30/18 09:35> - Assessment (1) Traumatic brain injury Code(s): S06.9X9A - Unspecified intracranial injury with loss of consciousness of unspecified duration, initial encounter Status: Acute Qualifiers: Encounter type: initial encounter (2) Traumatic subarachnoid hemorrhage Code(s): S06.6X9A - Traumatic subarachnoid hemorrhage with loss of consciousness of unspecified duration, initial encounter Status: Acute Qualifiers: Encounter type: initial encounter (3) Subdural hemorrhage Code(s): I62.00 - Nontraumatic subdural hemorrhage, unspecified Status: Acute - Attending Attestation The exam, history, and the medical decision-making described in the above note were completed with the assistance of the mid-level provider. I reviewed and agree with the findings presented. I attest that I had a [id number] encounter with the patient on the same day, and personally performed and documented my assessment and findings in the medical record. <Stevie Yost - Last Filed: 01/30/18 16:47>
[2018-01-30] MEDS: Mupirocin 2% Nasal Oint Topical Syringe EACH NARE SCH (09:37)
[2018-01-30] MEDS: Pantoprazole Sodium 20 MG DR Tablet PO SCH (09:37)
[2018-01-30] MEDS: Loratadine 10 MG Tablet PO SCH (09:37)
[2018-01-30] MEDS: Docusate Sodium 100 MG Capsule PO SCH ×2 (09:37→22:53)
[2018-01-30] MEDS: Sertraline 100 MG Tablet PO SCH (09:37)
[2018-01-30] MEDS: Polyethylene Glycol 3350 17 GM Packet PO SCH (09:38)
[2018-01-30 12:34] LABS: Baso % (Auto) 0.4 % (0.0-2.0); Eos % (Auto) 0.3 % (0.0-4.0); Hematocrit 39.4 % (35.0-46.0); Hemoglobin 13.1 gm/dL (11.6-15.3); Lymph # (Auto) 0.8 th/mm3 (1.0-4.8); Lymph % (Auto) 13.8 % (9.0-44.0); Mean Corpuscular HGB Conc 33.3 % (32.0-36.0); Mean Corpuscular Hemoglobin 29.6 pg (27.0-34.0); Mean Platelet Volume 8.7 fL (7.0-11.0); Mono # (Auto) 0.4 th/mm3 (0.0-0.9); Mono % (Auto) 6.4 % (0.0-8.0); Neut # (Auto) 4.4 th/mm3 (1.8-7.7); Neut % (Auto) 79.1 % (16.0-70.0); Platelet Count 117 th/mm3 (150-450); Red Blood Count 4.43 mil/mm3 (4.00-5.30); Red Cell Distribution Width 15.6 % (11.6-17.2); White Blood Count 5.6 th/mm3 (4.0-11.0)
[2018-01-30 13:19] LABS: Calcium 8.4 mg/dL (8.5-10.1); Carbon Dioxide 24.6 meq/L (21.0-32.0); Potassium 3.6 meq/L (3.5-5.1)
--- NOTE | 2018-01-30 13:31 | P.PNGS ---
Subjective Interval history: S/P PEG placement for low PO intake. Start TF with tray today Less agitated today Physical Exam Vital signs: Vital Signs 01/29/18 16:00 01/29/18 20:00 01/30/18 00:00 Temperature 97.4 F L 98.2 F 98.3 F Pulse Rate 95 H 96 H Respiratory Rate 18 18 Blood Pressure 164/72 H 132/61 128/58 L Pulse Oximetry 98 92 L 93 L 01/30/18 04:00 01/30/18 08:00 Temperature 97.8 F 99.1 F Pulse Rate 99 H 95 H Respiratory Rate 18 18 Blood Pressure 148/72 H 123/75 Pulse Oximetry 97 96 Intake & Output 01/29/18 01/30/18 01/30/18 18:59 06:59 18:59 Intake Total 810 / 810 1355 / 1355 Balance 810 / 810 1355 / 1355 Weight 69 kg Intake: IV 110 / 110 1355 / 1355 D5W/Normal Saline Inj 1,000 ML 1000 / 1000 @ 80 mls/hr IV.SIG .[id number] [facility] Rx#:[id number] Vancomycin Inj 1,000 MG In NS 250 / 250 Inj 250 ML @ 250 mls/hr IV.SIG GLOBAL MARKETING MANAGER [facility] Rx#:[id number] Keppra Inj 500 MG In NS Inj 100 110 / 110 105 / 105 ML @ 420 mls/hr IV.SIG Q12H [facility] Rx#:[id number] Anesthesia Amount 700 / 700 Other: # Voids 2 Date of Last Bowel Movement 01/28/18 01/28/18 Narrative: GENERAL: 87-year-old elderly female sitting on the side of the bed with CUSTOM FRAMING SPECIALIST assist. SKIN: Warm and dry. HEAD: Normocephalic. EYES: Pupils equal and round. No scleral icterus. ENT: No nasal bleeding or discharge. Mucous membranes pink and moist. NECK: Trachea midline. No JVD. CARDIOVASCULAR: Regular rate and rhythm. RESPIRATORY: No accessory muscle use. Lungs clear and diminished to auscultation. Breath sounds equal bilaterally. GASTROINTESTINAL: Abdomen soft, non-tender, nondistended. + BS. MUSCULOSKELETAL: Extremities without cyanosis, or edema. MAEW, + perfused NEUROLOGICAL: Lethargic and confused. Normal speech. - Urinary Catheter Management Indwelling Urethral Catheter Cath placed during this visit: yes Reason for continuing: Hourly intake/output Insertion date: 01/26/18 Assessment and Plan - Plan [place]: Fall from the standing position at home. Trauma transfer. INJURIES: RIGHT eyelid lac 5mm SDH SAH PMHx: DM, HLD, glaucoma, GERD, depression RIGHT eyelid lac, 5mm SDH, SAH Neurosurgery consulted Nonoperative management Neuro checks Neuropsychologist consulted Ani AguilarOB-PT/OT Rehab placement Anorexia ADA diet ordered, patient not eating Gastroenterology consulted S/P PEG placement Start Tube feed w/ tray Jevity 1.5 @ 40 Plan of care discussed with patient at bedside. Collaborating Trauma surgeon agrees with plan. Case management consulted to assist with discharge planning. Patient is clear from trauma surgery standpoint to safely DC to rehab.
[2018-01-30] MEDS: Montelukast 10 MG Tablet PO SCH (22:51)
[2018-01-30] MEDS: Gabapentin 100 MG Capsule PO SCH (22:51)
[2018-01-30] MEDS: Melatonin 5 MG Tablet PO SCH (22:53)
[2018-01-30] MEDS: Latanoprost 0.005% Opth Drops 2.5 ML Bottle EACH EYE SCH (22:55)
[2018-01-31] MEDS: Chlorhexidine Gluconate 2% 1 Pack (2 Cloths) TOPICAL SCH (05:19)
[2018-01-31] MEDS: Mupirocin 2% Nasal Oint Topical Syringe EACH NARE SCH ×2 (05:24→10:17)
[2018-01-31 09:35] VITALS: RESP 20
[2018-01-31] MEDS: Polyethylene Glycol 3350 17 GM Packet PO SCH (10:17)
[2018-01-31] MEDS: Sertraline 100 MG Tablet PO SCH (10:17)
[2018-01-31] MEDS: Docusate Sodium 100 MG Capsule PO SCH (10:17)
[2018-01-31] MEDS: Loratadine 10 MG Tablet PO SCH (10:17)
[2018-01-31] MEDS: Pantoprazole Sodium 20 MG DR Tablet PO SCH (10:17)
[2018-01-31] MEDS: Insulin NovoLIN Regular Correctional Sugar Inj SQ SCH ×2 (10:19→16:57)
--- NOTE | 2018-01-31 10:41 | P.PNNS ---
Subjective Interval history: Pt awake and alert. Denies headache, nausea/vomiting. States cough is a little better. <Frankie Fox - Last Filed: 01/31/18 10:37> Physical Exam Vital signs: Vital Signs 01/30/18 12:00 01/30/18 16:00 01/30/18 20:00 Temperature 100.2 F H 98 F 99.8 F H Pulse Rate 99 H 153 H 95 H Respiratory Rate 18 18 18 Blood Pressure 134/65 152/90 H 138/82 Pulse Oximetry 95 95 93 L 01/31/18 00:00 01/31/18 04:00 01/31/18 08:00 Temperature 98.1 F 97.6 F 98.6 F Pulse Rate 92 H 90 91 H Respiratory Rate 18 18 20 Blood Pressure 142/68 H 145/72 H 150/75 H Pulse Oximetry 95 94 L 96 Intake & Output 01/30/18 01/31/18 01/31/18 18:59 06:59 18:59 Intake Total 616 / 616 Balance 616 / 616 Weight 69 kg 69 kg Intake: Tube Feeding 466 / 466 Water Bolus Amount 150 / 150 Other: # Voids 2 - Constitutional no acute distress, average body habitus, cooperative - Routine HEENT Exam Head: Present: hematoma (right face.), facial swelling (improving.). Absent: atraumatic (Right periorbital ecchymosis. Steristrips in place.) Eye: Present: PERRL. Absent: conjunctival icterus - Routine Respiratory Exam Present: CTA bilaterally. Absent: rhonchi, wheezes - Routine Cardiovascular Exam Present: RRR, S1, S2. Absent: murmur - Routine Abdominal Exam Present: soft, normoactive bowel sounds. Absent: tenderness, distended - Routine Extremities Exam Absent: cyanosis - Routine Skin Exam Absent: cyanosis, erythema - Routine Neurological Exam Present: alert, altered mental status (mild.), moving all extremities, normal speech. Absent: sensory deficit, motor deficit, hearing grossly intact ([place]) - Detailed Neurological Exam: Coma Scale Eye Opening: Spontaneous Verbal Response: Confused Motor Response: Obey commands Catherine Coma Scale Total: 14 - Routine Psychiatric Exam Present: cooperative. Absent: good judgment, agitated - Urinary Catheter Management Indwelling Urethral Catheter Cath placed during this visit: yes Reason for continuing: Hourly intake/output Insertion date: 01/26/18 <Frankie Fox - Last Filed: 01/31/18 10:37> Vital signs: Vital Signs 01/30/18 20:00 01/31/18 00:00 01/31/18 04:00 Temperature 99.8 F H 98.1 F 97.6 F Pulse Rate 95 H 92 H 90 Respiratory Rate 18 18 18 Blood Pressure 138/82 142/68 H 145/72 H Pulse Oximetry 93 L 95 94 L 01/31/18 08:00 01/31/18 12:00 01/31/18 16:00 Temperature 98.6 F 97.2 F L 98.7 F Pulse Rate 91 H 99 H 95 H Respiratory Rate 20 20 20 Blood Pressure 150/75 H 161/82 H 169/87 H Pulse Oximetry 96 96 97 Intake & Output 01/30/18 01/31/18 01/31/18 18:59 06:59 18:59 Intake Total 616 / 616 Balance 616 / 616 Weight 69 kg 69 kg Intake: Tube Feeding 466 / 466 Water Bolus Amount 150 / 150 Other: # Voids 2 - Urinary Catheter Management Indwelling Urethral Catheter Cath placed during this visit: no <Stevie Yost - Last Filed: 01/31/18 17:29> Assessment and Plan - Assessment (1) Traumatic brain injury Code(s): S06.9X9A - Unspecified intracranial injury with loss of consciousness of unspecified duration, initial encounter Status: Acute Qualifiers: Encounter type: initial encounter (2) Traumatic subarachnoid hemorrhage Code(s): S06.6X9A - Traumatic subarachnoid hemorrhage with loss of consciousness of unspecified duration, initial encounter Status: Acute Qualifiers: Encounter type: initial encounter (3) Subdural hemorrhage Code(s): I62.00 - Nontraumatic subdural hemorrhage, unspecified Status: Acute - Plan A: 87-year-old lady was transferred from [facility] fall at home with a traumatic brain injury involving the small right frontal subdural hemorrhage along with traumatic subarachnoid hemorrhage right more than left with generalized atrophy and no mass-effect. P: Continue to monitor Neuro exam. Continue with sequential compression devices for DVT prophylaxis. Continue with GI prophylaxis. Keppra for seizure prophylaxis. Rehab placement. <Frankie Fox - Last Filed: 01/31/18 10:37> - Assessment (1) Traumatic brain injury Code(s): S06.9X9A - Unspecified intracranial injury with loss of consciousness of unspecified duration, initial encounter Status: Acute Qualifiers: Encounter type: initial encounter (2) Traumatic subarachnoid hemorrhage Code(s): S06.6X9A - Traumatic subarachnoid hemorrhage with loss of consciousness of unspecified duration, initial encounter Status: Acute Qualifiers: Encounter type: initial encounter (3) Subdural hemorrhage Code(s): I62.00 - Nontraumatic subdural hemorrhage, unspecified Status: Acute - Attending Attestation The exam, history, and the medical decision-making described in the above note were completed with the assistance of the mid-level provider. I reviewed and agree with the findings presented. I attest that I had a [id number] encounter with the patient on the same day, and personally performed and documented my assessment and findings in the medical record. <Stevie Yost - Last Filed: 01/31/18 17:29>
[2018-01-31 16:38] VITALS: BP 169/87; PULSE 95; TEMP 98.7; O2SAT 97
--- NOTE | 2018-01-31 16:53 | P.DS ---
Date of admission: 01/26/18 04:10 Primary care physician: UNKNOWN Brief History from admission: S/P Fall DS: Diagnosis - Discharge Diagnosis (1) Anorexia Status: Acute (2) Fall from standing Status: Acute (3) Traumatic brain injury Status: Acute (4) Traumatic subarachnoid hemorrhage Status: Acute DS: Summary Hospital Course: [place]: Fall from the standing position at home. ? LOC. Trauma transfer. INJURIES: RIGHT eyelid lac 5mm SDH SAH PMHx: DM, HLD, glaucoma, GERD, depression RIGHT eyelid lac, 5mm SDH, SAH Neurosurgery consulted, F/U outpatient Nonoperative management Neuro checks Neuropsychologist consulted Ani NAPIER-PT/OT Rehab placement Anorexia Gastroenterology consulted- family agreeable to PEG placement S/P PEG placement Tube feed w/ tray Jevity 1.5 @ 40- transition to bolus feeds Today patient displayed S/S of aspiration so ST recommended only TF at this time Abdominal binder to prevent PEG being pulled Plan of care discussed with patient and housing case manager. Collaborating Trauma surgeon agrees with plan. Case management consulted to assist with discharge planning. Patient is clear from trauma surgery standpoint to safely DC to SNF. - Time Spent with Patient Total time spent providing and/or coordinating discharge services: - Quality: VTE Deep Vein Thrombosis/Pulmonary Embolism Present on Admission: No Exam Vital signs: Vital Signs 01/30/18 20:00 01/31/18 00:00 01/31/18 04:00 Temperature 99.8 F H 98.1 F 97.6 F Pulse Rate 95 H 92 H 90 Respiratory Rate 18 18 18 Blood Pressure 138/82 142/68 H 145/72 H Pulse Oximetry 93 L 95 94 L 01/31/18 08:00 01/31/18 12:00 01/31/18 16:00 Temperature 98.6 F 97.2 F L 98.7 F Pulse Rate 91 H 99 H 95 H Respiratory Rate 20 20 20 Blood Pressure 150/75 H 161/82 H 169/87 H Pulse Oximetry 96 96 97 Intake & Output 01/30/18 01/31/18 01/31/18 18:59 06:59 18:59 Intake Total 616 / 616 Balance 616 / 616 Weight 69 kg 69 kg Intake: Tube Feeding 466 / 466 Water Bolus Amount 150 / 150 Other: # Voids 2 Narrative: [place]: GENERAL: 87-year-old elderly female lying in bed eating breakfast. SKIN: Warm and dry. HEAD: Normocephalic. EYES: Pupils equal and round. No scleral icterus. GASTROINTESTINAL: Abdomen soft, non-tender, nondistended. + BS. MUSCULOSKELETAL: Extremities without cyanosis, or edema. MAEW, + perfused NEUROLOGICAL: Awake and alert. Normal speech. Results Procedures completed during hospitalization: NA Completed studies during hospitalization: Pending at discharge 01/29/18 13:37 Surgical [PTH] Routine Labs on day of discharge: Labs from last 24 hours 01/31/18 01/31/18 01/30/18 12:59 07:49 21:00 POC Glucose 191 H 196 H 203 H - Impressions ITS Impressions Shoulder X-Ray 01/26/18 00:00 CONCLUSION: Degenerative changes with high riding right shoulder likely chronic rotator cuff tear. Head CT 01/27/18 00:00 CONCLUSION: 1. Bilateral frontotemporal lobe subarachnoid hemorrhage right greater than left. Small right frontoparietal subdural hematoma. No evidence of midline shift. 2. Moderate-sized right maxillary sinus air-fluid level suggesting acute sinusitis. Discharge Plan - Discharge Disposition Patient Disposition: 62 Rehab Inpatient - Discharge Condition Condition: Stable - Discharge Order Discharge Orders: Discharge Order (Routine); Ordered 01/30/18 Ordered By: Joanne Hwang - Physicians Team Primary Care Provider: UNKNOWN, Attending Provider: Lilian Moreno Other Providers: Barrera Perla MD ; Tray Tolliver MD ; [facility] ; Golden Mac MD ; Annmarie Barth ARNP ; Atul Starr MD ; Celina Quiroz MD ; Lilian Moreno MD ; Joanne Hwang ARNP ; Stevie Yost MD ; [employer] ; Laura Green MD ; Hay Arzola, PhD ; [facility],[place] ; [facility] - Rxs /Orders / Referrals /Forms Prescriptions: New acetaminophen 325 mg Tablet 650 mg PO Q4H PRN (Reason: Pain 1-10 And/Or Fever >101f) RF: 0 Continue aspirin [Aspirin Low Dose] 81 mg Tablet,Delayed Release (Dr/Ec) 81 mg PO DAILY atorvastatin [Lipitor] 10 mg Tablet 10 mg PO HS betamethasone dipropionate 0.05 % Cream Topical DAILY gabapentin 100 mg Capsule 200 mg PO HS ipratropium bromide 0.03 % [place],Non-Aerosol 2 spray INTRANASAL BID isosorbide mononitrate 30 mg Tablet Extended Release 24 Hr 30 mg PO DAILY latanoprost 0.005 % Drops 1 drp OPHTHALMIC (EYE) QPM loratadine 10 mg Tablet 10 mg PO DAILY melatonin 3 mg Tablet 3 mg PO HS metoprolol succinate 50 mg Tablet Extended Release 24 Hr 50 mg PO DAILY montelukast 10 mg Tablet 10 mg PO QPM multivitamin [Multiple Vitamins] Tablet 1 tab PO EVERY OTHER DAY omeprazole 20 mg Capsule,Delayed Release(Dr/Ec) 20 mg PO DAILY sertraline 100 mg Tablet 200 mg PO DAILY Discontinued lorazepam 1 mg Tablet 1 mg PO HS Referrals: Stevie Yost MD [NEUROSURGERY] - See Instructions (F/U in 2 weeks) UNKNOWN, [Primary Care Provider] - See Instructions (F/U in 1 week) - Discharge Instructions Patient Printed Instructions: Subdural Hematoma (DC), Chronic Dysphagia (DC), Cognitive Disorders after Traumatic Brain Injury (DC), Subarachnoid Hemorrhage ( GEN)
== END 2018-01-31 18:00 ==
LOC: N03 04:10 → N05 01-28 22:04
PROVIDERS: ADMIT Surgery; ATTEND Surgery
PROC: PANENDO (2018-01-29 10:48)